=== PATIENT | male | born 1945 | race Caucasian/White ===

== ENCOUNTER 2019-08-04 21:56 | Inpatient (IN) | payer MEDICARE ==
[2019-08-04] MEDS ORDERED: Enoxaparin Sodium 100 MG/ML SYRINGE ONE (22:31)
[2019-08-04] MEDS ORDERED: Nitroglycerin 2% Ointment 1 INCH/1 GM Packet ONE ×2 (22:31→22:39)
[2019-08-04 23:24] LABS: Troponin I 0.916 ng/mL (< 0.028)
[2019-08-05] MEDS ORDERED: Ondansetron ODT 4 MG TAB SL PRN (01:34)
[2019-08-05] MEDS ORDERED: Acetaminophen 325 MG TAB PO PRN (01:34)
[2019-08-05] MEDS ORDERED: Ondansetron PF 4 MG/2 ML Vial IVP PRN (01:34)
[2019-08-05 02:48] LABS: Troponin I 7.008 ng/mL (< 0.028)
[2019-08-05] MEDS ORDERED: Dextrose 5% in Water 1,000 ML IV PRN (04:30)
[2019-08-05] MEDS ORDERED: HumaLOG 300 UNITS/3 ML VIAL SC PRN (04:30)
[2019-08-05] MEDS ORDERED: Dextrose 50% Abboject 50 ML SYRINGE SLOW IVP PRN (04:30)
--- NOTE | 2019-08-05 06:33 | HP ---
CODE STATUS: Full code. TIME OF EVALUATION: 3:00 a.m. CHIEF COMPLAINT: Chest pain. HISTORY OF PRESENT ILLNESS: A 74-year-old male patient with past medical history of diabetes, coronary artery disease, status post VA in 2009 with stent placement, prostate cancer, came to the hospital after having severe sudden onset chest pain started around 3:00 p.m. No clear triggers, no alleviating factors. The pain was substernal, sharp in nature. REVIEW OF SYSTEMS: Positive with cardiovascular, the patient has chest pain. All other systems were reviewed and negative except for the findings mentioned above. PAST SURGICAL HISTORY: Prostate cancer surgery and 2 cardiac stents. PSYCHIATRIC HISTORY: The patient denies psych history. SOCIAL HISTORY: No alcohol, no drugs, no smoking history. KNOWN ALLERGIES: Statins. REPORTED MEDICATIONS: 1. Glyburide. 2. Metformin. 3. . 4. Aspirin. 5. Krill oil. 6. One A Day. PHYSICAL EXAMINATION: VITAL SIGNS: On presentation, blood pressure 146/75 with heart rate 58, respiratory rate was 16, temperature 98.3. Pain was 0/10. Oxygen saturation was 95% on room air. GENERAL APPEARANCE: The patient is alert, oriented, in no acute distress. HEENT: Eyes, normal conjunctivae. Moist oral mucosa. Anicteric. No JVD. RESPIRATORY: Bilateral air entry. No rales. No wheezes. Symmetric expansion. CARDIOVASCULAR: Normal rate, regular rhythm. No murmurs. No gallop. No edema. ABDOMEN: Soft. Normal bowel sounds. MUSCULOSKELETAL: Baseline range of motion and strength. SKIN: Warm, intact. No pallor. No rash. No redness. Capillary refill seems to be intact. NEURO: No evidence of any new focal weakness. PSYCH: The patient has good mood. No anxiety. Optimal judgment. IMAGING: EKG was done. The patient has sinus bradycardia with marked sinus arrhythmia, complete right bundle-branch block, MA 156. LABORATORY DATA: Labs were done. Initial troponin 0.9, the second one is 7.0. All other labs that were done prior to transfer and discussed with ER doctor were normal. ASSESSMENT AND PLAN: The patient will be placed in the hospital with following medical problems. 1. Acute coronary syndrome. The patient has [id number] elevation myocardial infarction type 1 with highest troponin 7.0. The patient received Lovenox, aspirin, beta blockers, and LONNIE inhibitors. Cardiology is being consulted for recommendations. 2. History of coronary artery disease, status post stent, now with new acute event and treatment as above. 3. Uncontrolled hypertension. Systolic blood pressure in the 143 range. We will reconcile home medications, adjust treatment as needed. 4. Obesity. The patient is advised to lose weight. 5. Controlled diabetes. We will place the patient on sliding scale for optimal control. 6. Deep venous thrombosis prophylaxis. Job ID: [id number]
[2019-08-05] MEDS ORDERED: Lidocaine 1% (PF) 30 ML VIAL ONE (08:21)
[2019-08-05] MEDS ORDERED: Loperamide HCl 2 MG CAP PO PRN (08:27)
[2019-08-05] MEDS ORDERED: Loratadine 10 MG TAB PO PRN (08:27)
[2019-08-05] MEDS ORDERED: Zolpidem Tartrate 5 MG TAB PO PRN (08:27)
[2019-08-05] MEDS ORDERED: Artificial Tears 18 DROP/0.9 ML EA EYE PRN (08:27)
[2019-08-05] MEDS ORDERED: Calcium Carbonate 500 MG ChewTAB PO PRN (08:27)
[2019-08-05] MEDS ORDERED: Diabetic Tussin 200 MG/10 ML UDCUP PO PRN (08:27)
[2019-08-05] MEDS ORDERED: Sodium Chloride 0.65% Nasal 44 ML BOT EA NARE PRN (08:27)
[2019-08-05] MEDS ORDERED: hydrALAZINE 20 MG/ML VIAL SLOW IVP PRN (08:27)
[2019-08-05] MEDS ORDERED: Senokot S 8.6-50 MG TAB PO PRN (08:27)
[2019-08-05] MEDS ORDERED: HYDROcodone/Acetaminophen 5/325 mg Tablet PO PRN (08:27)
[2019-08-05] MEDS ORDERED: Bisacodyl 10 MG SUPP PR PRN (08:27)
[2019-08-05] MEDS ORDERED: Nitroglycerin 0.4 MG TAB (25 Tab Bottle) SL PRN ×2 (08:27→09:10)
[2019-08-05] MEDS ORDERED: Cepastat Lozenges 1 LOZ PO PRN (08:27)
[2019-08-05] MEDS ORDERED: Fentanyl 100 MCG/2 ML VIAL ONE (08:51)
[2019-08-05] MEDS ORDERED: Midazolam HCl 2 mg/2 ml Vial ONE (08:51)
[2019-08-05] MEDS ORDERED: Prevnar 13-Val Conj/PF 0.5 ML SYRINGE IM ONE (09:00)
[2019-08-05] MEDS ORDERED: Sodium Chloride 0.9% 200 ML IV PRN (09:10)
[2019-08-05] MEDS ORDERED: Acetaminophen/Codeine 30-300mg Tablet PO PRN ×2 (09:10)
[2019-08-05] MEDS ORDERED: Sodium Chloride 0.9% 1,000 ML IV SCH (09:15)
[2019-08-05] MEDS: Lisinopril 2.5 MG TAB PO SCH (10:03)
[2019-08-05] MEDS: Metoprolol Tartrate 25 MG TAB PO SCH ×2 (10:03→20:23)
[2019-08-05] MEDS: Enoxaparin Sodium 40 MG/0.4 ML SYRINGE SC SCH (10:03)
--- NOTE | 2019-08-05 10:33 | CON ---
DATE OF CONSULTATION: REASON FOR CONSULTATION: Non-Q-wave myocardial infarction. HISTORY OF PRESENT ILLNESS: Mr. Beckwith is a 74-year-old gentleman with a previous history of non-Q-wave MA, status post stent placement 10 years ago. He recently presented with acute onset chest pain. Chest pain lasted for up to 2 hours. He was seen, evaluated in [place]. He was given aspirin in addition to morphine. He is currently pain-free. His troponin peaked at 7.0. PAST MEDICAL HISTORY: CAD status post stent placement to the LAD ? prostate cancer. PAST SURGICAL HISTORY: Prostate surgery. SOCIAL HISTORY: No current tobacco or alcohol use. ALLERGIES: STATINS. HOME MEDICATIONS: Include aspirin, Krill oil, metformin, glyburide. REVIEW OF SYSTEMS: A 10-point review of systems is reviewed as above, otherwise negative. PHYSICAL EXAMINATION: GENERAL: Patient is a pleasant gentleman who is in no acute distress. The patient appears their stated age. VITAL SIGNS: Blood pressure 120/65, pulse 65, temperature 98.8. NEUROLOGIC: The patient is alert and oriented x3 with no focal neurologic deficits. HEENT: Sclerae without icterus. Mouth has moist mucous membranes with normal pallor. NECK: No JVD. Carotid upstroke brisk. No bruits bilaterally. LUNGS: Clear to auscultation with unlabored respirations. BACK: No scoliosis or kyphosis. CARDIAC: Regular rate and rhythm with normal S1 and S2. No S3 or S4 noted. No significant rubs, murmurs, thrills, or gallops noted throughout the precordium. PMI is not displaced. There is no parasternal heave. ABDOMEN: Soft, nontender, nondistended. No peritoneal signs present. No hepatosplenomegaly. No abnormal striae. EXTREMITIES: 2+ femoral and 2+ dorsalis pedis pulses. No cyanosis, clubbing, or edema. SKIN: No gross abnormalities. LABORATORY DATA: Troponin as above. CK and troponin within normal limits. EKG shows normal sinus rhythm with right bundle branch block. No ST-T wave changes suggesting ischemia. IMPRESSION: Non-Q-wave myocardial infarction. RECOMMENDATIONS: Mr. Beckwith has a previous history of MA and a stent placement. He had acute onset chest pain with elevated troponin. His heart score is elevated. The patient also has GUERRERO score that is also elevated. I would recommend the procedure with coronary angioplasty. I discussed procedure in full detail with Mr. Beckwith. Risks include not limited to the following: , stroke, MA, need for emergency surgery, loss of limb, bleeding, and infection, as well as a reaction to the dye causing kidney failure and needing long-term dialysis. I also discussed the risks of PCI to include all of the above including coronary dissection and perforation in addition to acute stent thrombosis and restenosis. All questions about the procedure were answered. Given the above, the patient agreed to proceed with coronary angiography and possible PCI. All questions were answered. Also discussed drug coated versus non-drug coated stent placement. There were no contraindications, we will proceed if needed. Further recommendations pending the above. Job ID: [id number]
[2019-08-05] MEDS ORDERED: Communication Order-Pharmacy FS SCH (12:32)
[2019-08-05 13:30] LABS: #Eosinphils 0.2 thou/uL (0.0-0.7); #Lymphocytes 1.8 thou/uL (1.20-3.40); #Monocytes 0.6 thou/uL (0.11-0.59); #Neutrophils 4.8 thou/uL (1.40-6.50); %Basophils 0.5 % (0.0-1.0); %Eosinophils 2.7 % (0.0-10.0); %Lymphocytes 24.5 % (21.0-51.0); %Monocytes 7.6 % (0.0-10.0); %Neutrophils 64.8 % (42.0-75.0); Hemoglobin 13.4 g/dL (14.0-18.0); Mean Corpuscular HGB CONC 34.5 g/dL (32.0-36.0); Mean Corpuscular Hemoglobin 32.6 pg (27.0-31.0); Mean Corpuscular Volume 94.5 fL (78.0-98.0); Mean Platelet Volume 7.6 fL (7.4-10.4); Platelet Count 183 thou/uL (130-400); RBC Distribution Width 12.9 % (11.5-14.5); White Blood Cell (WBC) Count 7.4 thou/uL (4.8-10.8)
--- NOTE | 2019-08-05 13:33 | RAD ---
SINGLE VIEW CHEST: Date: 08/05/19 COMPARISON: 08/04/19. HISTORY: Preoperative radiograph prior to open heart surgery. FINDINGS: Single view of the chest shows cardiomediastinal silhouette which is upper limits of normal in size. There is no evidence of consolidation, mass, or pleural effusion. IMPRESSION: No evidence of acute cardiopulmonary disease. POS: TPC
[2019-08-05 13:44] LABS: Hemoglobin A1c 5.8 % (4.0-6.0)
--- NOTE | 2019-08-05 13:51 | PDOC.HOSPP ---
- Subjective Encounter Date: 08/05/19 Encounter Time: 09:00 Subjective: Patient seen and examined. No new complaints. No overnight events pt had cardiac cath this morning and found 3 vessel cad - Objective Vital Signs & Weight: Vital Signs (12 hours) Temp Pulse Resp BP BP BP Pulse Ox 08/05/19 11:34 98.5 F 65 16 117/56 L 95 08/05/19 10:02 97 08/05/19 09:10 97.9 F 59 L 16 115/62 115/62 94 L 08/05/19 07:37 98.8 F 65 15 120/65 97 08/05/19 03:52 97.4 F L 57 L 18 101/71 92 L Weight Weight 212 lb 8 oz Result Diagrams: 08/05/19 13:18 Additional Labs: Accuchecks 08/05/19 08/05/19 11:39 05:21 POC Glucose 138 H 121 H Radiology Reviewed by me: Yes EKG Reviewed by me: Yes Hospitalist ROS - Review of Systems Eyes: denies: pain, vision change, conjunctivae inflammation, eyelid inflammation, redness, other ENT: denies: ear pain, ear discharge, nose pain, nose discharge, nose congestion , mouth pain, mouth swelling, throat pain, throat swelling, other Respiratory: denies: cough, dry, shortness of breath, hemoptysis, SOB with excertion, pleuritic pain, sputum, wheezing, other Cardiovascular: denies: chest pain, palpitations, orthopnea, paroxysmal noc. dyspnea, edema, light headedness, other Gastrointestinal: denies: nausea, vomiting, abdominal pain, diarrhea, constipation, melena, hematochezia, other Genitourinary: denies: dysuria, frequency, incontinence, hematuria, retention, other Musculoskeletal: denies: neck pain, shoulder pain, arm pain, back pain, hand pain, leg pain, foot pain, other Skin: denies: rash, lesions, betito, bruising, other - Medication Medications: Active Medications Generic Name Dose Route Start Last Admin Trade Name Freq PRN Reason Stop Dose Admin Enoxaparin Sodium 40 mg 08/05/19 09:00 08/05/19 10:03 Lovenox SC Not Given 0900 KATE Sodium Chloride 1,000 mls @ 125 mls/hr 08/05/19 09:15 08/05/19 10:07 Normal Saline 0.9% IV 08/05/19 15:16 Not Given .Q8H KATE Lisinopril 2.5 mg 08/05/19 09:00 08/05/19 10:03 Zestril PO 2.5 mg DAILY KATE Administration Metoprolol Tartrate 12.5 mg 08/05/19 09:00 08/05/19 10:03 Lopressor PO 12.5 mg BID KATE Administration Sodium Chloride 10 ml 08/05/19 09:00 08/05/19 10:02 Flush - Normal Saline IVF Not Given Q12HR KATE - Exam General Appearance: NAD, awake alert Eye: PERRL, anicteric sclera ENT: normocephalic atraumatic, no oropharyngeal lesions Neck: supple, symmetric, no JVD, no thyromegaly Heart: RRR, no murmur, no gallops, no rubs Respiratory: CTAB, no wheezes, no rales, no ronchi Gastrointestinal: soft, non-tender, non-distended, normal bowel sounds Extremities: no cyanosis, no clubbing, no edema Skin: normal turgor, no lesions, no rashes Neurological: cranial nerve grossly intact, normal sensation to touch, no focal deficits Musculoskeletal: normal tone, normal strength, no muscle wasting Psychiatric: normal affect, normal behavior, A&O x 3 Hosp A/P (1) NSTEMI (non-ST elevated myocardial infarction) Code(s): I21.4 - NON-ST ELEVATION (NSTEMI) MYOCARDIAL INFARCTION Status: Acute (2) 3-vessel coronary artery disease Status: Acute (3) Diabetes type 2, controlled Code(s): E11.9 - TYPE 2 DIABETES MELLITUS WITHOUT COMPLICATIONS Status: Chronic - Plan old records reviewed/req, plan discussed w/ family 08/05/19- s/p cardiac cath today, found with 3 vessel cad, now CV surgery consulted, will get echo today, he will need CABG, he is not on statin due to his allergy, currently on medical management, will repeat labs tomorrow, medication reviewed as above, symptomatic treatment
[2019-08-05 13:52] LABS: Anion Gap 10 mmol/L (10-20); BUN (Urea Nitrogen) 22 mg/dL (8.4-25.7); Calc. Creatinine Clearance 98 mL/min (70-130); Calcium 8.4 mg/dL (7.8-10.44); Carbon Dioxide 27 mmol/L (23-31); Chloride 102 mmol/L (98-107); Estimated GFR-MDRD 83; Glucose 132 mg/dL (83-110); Sodium 135 mmol/L (136-145)
--- NOTE | 2019-08-05 13:59 | CON ---
DATE OF CONSULTATION: 08/05/2019 REQUESTING PHYSICIAN: Dr. Palomino. PRIMARY CARE PHYSICIAN: Levi Slater MD CHIEF COMPLAINT: Chest pain. HISTORY OF PRESENT ILLNESS: The patient is a 74-year-old man with a known history of coronary artery disease, having had right coronary stenting following myocardial infarction about nine years ago. He has done well until yesterday while working, he began developing chest tightness that went into both axilla and shoulders. He developed some epigastric discomfort, reminiscent of heartburn, but he also began developing some fullness in his jaws and an intense sensation of pressure like someone standing on his chest. He did not have any nausea, shortness of breath, or diaphoresis. The chest tightness was reminiscent of his heart attack in 2009, that one had been associated with rather dramatic diaphoresis, but did not have the indigestion type quality that this presentation did in the emergency room in [place]. He had a right bundle branch block, but no ischemic changes on his EKG. His troponin, however, was elevated and he was transferred here where it continued to rise. By the time he arrived here, his pain had resolved, having received only morphine and Zofran there in the emergency room. Here, an inch of nitroglycerin paste was applied to his chest and he was given 1 mg/kg of Lovenox. Cardiac catheterization today shows multi-vessel disease with preserved left ventricular systolic function. 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 He has some minimal distant smoking history, having smoked for about 5 years during his 30s. He does not drink. FAMILY HISTORY: Significant for a younger brother having had open heart surgery in his late 40s to early 50s. REVIEW OF SYSTEMS: Negative for any eye, speech, facial, or extremity symptoms consistent with TIAs. Negative for any claudication. Negative for any shortness of breath, orthopnea, or PND. Negative for any dependent edema. Negative for any recent illnesses. PHYSICAL EXAMINATION: GENERAL: He is a fairly robust-appearing man in no distress. VITAL SIGNS: 5 feet 11-1/2 inches, weighs 212-1/2 pounds. His heart rate is 58, blood pressure 146/75, room air O2 saturations are 94%, and temperature is 97.9. HEENT: He has no xanthelasma. No JVD. No carotid bruits. CHEST: Clear to auscultation. He has a regular rate and rhythm without murmur. ABDOMEN: Soft and nontender. He has palpable radial, femoral, dorsalis pedis, and posterior tibial pulses bilaterally. He has no femoral bruits. He has no clubbing, cyanosis, or edema. NEUROLOGIC: Grossly nonfocal. He has no obvious varicosities. He is missing his left index finger and he has some scarring and contractures of the middle and 4th fingers. He has a tissue flap coverage at the stump of the index finger and a well-healed surgical scar in the left lower quadrant of the abdomen that was the source of the flap. LABORATORY EXAM: In [place], his white count was 7.59, hemoglobin 13.9, hematocrit 40.7, platelets 235,000. Sodium 139, potassium 4.0, chloride 104, CO2 of 24, glucose 139, BUN 22, creatinine 0.9, calcium 9.23, protein 7.0, albumin 4.1, bilirubin 1.0, alkaline phosphatase 53, AST 21, ALT 21. PT 13.4 seconds, INR 1.0, PTT 28.8 seconds. His troponin was 0.419 at about 5:30 in the evening. Here about 10:45, his troponin was 0.916 and then about 2 o'clock this morning, it was 7.008. The EKG shows right bundle branch block. I was not able to find a chest x-ray. His cardiac catheterization shows a right-dominant system with stented right coronary proper. He has subtotal lesion very proximally as well as at the crux and at the origin of what appears to represent a small posterolateral branch. He has a relatively small PDA. It is possible that this actually represents a long acute marginal. He also has serial in-stent stenosis on the order of 60% to 70%. His left main and very proximal circumflex appeared to be normal. He has about a 60% to 70% proximal LAD lesion just before the first septal charge entry and just after that is reasonably good size diagonal. There is a long mid LAD lesion that tapers proximally, it is on the order of 60% to 70% and distally 80% to 90%. He has a 70% or 80% lesion in the very short portion of a bifurcated OM1, the more anterior branch is tiny and the more posterior branch of that OM1 is similar in size to the catheter. After left atrial branch, there is a good-sized OM that bifurcates very distally. There is a 90% or 95% very proximal lesion in it and the circumflex continues on from there. I do not see anything more than some minimal luminal irregularity in it. LVEF is around 60%. LV pressure was 117/5 with an EDP of 35. Aortic pressure on pullback 120/54 with a mean of 81. IMPRESSION AND RECOMMENDATIONS: Diabetic with three-vessel coronary artery disease including proximal LAD lesion. He has good LV systolic function, but has significantly elevated LVEDP. He has been restarted on his home medications of Actos 30 mg a day, glimepiride 4 mg a day, metformin 500 at bedtime, and an adult aspirin a day. He also normally takes fish oil 1200 mg b.i.d. and a multivitamin a day, stating that he has allergy to statins, which cause a pruritic rash. Evidently, he has only tried one statin, but does not recall the name. He in one list describes allergy to Plavix, but in discussions with the family, he had been started on Plavix at the same time he had been started on the statin and he had just assumed that the Plavix also caused a pruritic rash. He has since been started on low-dose Zestril 2.5 mg a day and low-dose Lopressor 12.5 mg b.i.d. without any recurrence of angina. I will defer to Cardiology about lipid management, seems to be a reasonable candidate for coronary artery bypass grafting and we will schedule for tomorrow. Job ID: [id number]
[2019-08-05] MEDS ORDERED: Iopamidol 370 76% 100 ML VIAL ONE (17:39)
[2019-08-05] MEDS: Docusate 100 MG CAP PO SCH (20:25)
[2019-08-05] MEDS ORDERED: Aspirin 325 MG TAB PO SCH (21:00)
--- NOTE | 2019-08-06 06:27 | PDOC.CPN ---
- Subjective Interval history: No complaints - Objective Allergies/Adverse Reactions: Allergies Allergy/AdvReac Type Severity Reaction Status Date / Time [id number] Reductase Allergy Verified 05/29/17 20:22 Inhibitor Visit Medications: Current Medications Acetaminophen/Codeine Phosphate (Tylenol #3) 1 tab PO Q4H PRN PRN Reason: Mild Pain (1-3) Acetaminophen/Codeine Phosphate (Tylenol #3) 2 tab PO Q4H PRN PRN Reason: Moderate Pain (4-6) Hydrocodone Bitart/Acetaminophen ([place] 5/325) 1 tab PO Q4H PRN PRN Reason: Moderate Pain (4-6) Artificial Tears (Tears Naturale) 2 drop EA EYE PRN PRN PRN Reason: Dry Eyes Aspirin (Aspirin) 325 mg PO HS [facility] Last Admin: 08/05/19 20:24 Dose: 325 mg Bisacodyl (Dulcolax) 10 mg ND DAILYPRN PRN PRN Reason: Constipation Calcium Carbonate (Tums) 1,000 mg PO Q4H PRN PRN Reason: Heartburn or Indigestion Cefazolin Sodium (Cabg-Ancef) 2 gm SLOW IVP ASDIR [facility] Dextrose/Water (Dextrose 50%) 25 gm SLOW IVP PRN PRN PRN Reason: Hypoglycemia Docusate Sodium (Colace) 100 mg PO BID [facility] Last Admin: 08/05/19 20:25 Dose: 100 mg Enoxaparin Sodium (Lovenox) 40 mg SC 0900 [facility] Last Admin: 08/05/19 10:03 Dose: Not Given Glucagon (Glucagon) 1 mg IM PRN PRN PRN Reason: Hypoglycemia Guaifenesin (Robitussin Sf) 200 mg PO Q4H PRN PRN Reason: Cough Hydralazine HCl (Apresoline) 10 mg SLOW IVP Q4H PRN PRN Reason: SBP > 180 and HR < 70 Dextrose/Water (D5w) 1,000 mls @ 0 mls/hr IV .Q0M PRN PRN Reason: Hypoglycemia Insulin Human Lispro (Humalog) 0 units SC .MILD SLIDING SCALE PRN PRN Reason: Mild Correctional Scale Lisinopril (Zestril) 2.5 mg PO DAILY [facility] Last Admin: 08/05/19 10:03 Dose: 2.5 mg Loperamide HCl (Imodium) 2 mg PO PRN PRN PRN Reason: Diarrhea/Loose Stools Loratadine (Claritin) 10 mg PO DAILYPRN PRN PRN Reason: Sinus Symptoms Metoprolol Tartrate (Lopressor) 12.5 mg PO BID [facility] Last Admin: 08/05/19 20:23 Dose: 12.5 mg Miscellaneous Information (Communication Order-Pharmacy) 1 each FS ASDIR KATE Nitroglycerin (Nitrostat) 0.4 mg SL Q5MIN PRN PRN Reason: Chest Pain Senna/Docusate Sodium (Senokot S) 2 tab PO BID PRN PRN Reason: Constipation Sodium Chloride (Flush - Normal Saline) 10 ml IVF Q12HR [facility] Last Admin: 08/05/19 20:25 Dose: 10 ml Sodium Chloride (Flush - Normal Saline) 10 ml IVF PRN PRN PRN Reason: Saline Flush Sodium Chloride ([place] Nasal [place] 0.65%) 0 ml EA NARE QIDPRN PRN PRN Reason: Nasal Congestion Throat Lozenges (Cepastat Lozenges) 1 arturo PO Q2H PRN PRN Reason: Sore Throat Zolpidem Tartrate (Ambien) 5 mg PO HSPRN PRN PRN Reason: Insomnia Vital Signs & Weight: Vital Signs Temp Pulse Resp BP Pulse Ox 08/06/19 03:57 99.2 F 67 18 133/66 94 L 08/05/19 19:15 98.3 F 64 16 116/57 L 94 L Weight 212 lb 8 oz - Physical Exam General: alert & oriented x3 HEENT: normocephaly Neck: supple neck Cardiac: regular rate and rhythm, no murmur Lungs: clear to auscultation Neuro: grossly intact Musculoskeletal: no pain - Labs Result Diagrams: 08/05/19 13:18 08/05/19 13:18 Troponin/CKMB Troponin I 7.008 ng/mL (< 0.028) H* 08/05/19 01:53
[2019-08-06] MEDS ORDERED: Vecuronium 10 MG VIAL ONE ×2 (06:32→13:59)
[2019-08-06] MEDS ORDERED: Fentanyl 100 MCG/2 ML VIAL ONE (06:32)
[2019-08-06] MEDS ORDERED: Midazolam HCl 2 mg/2 ml Vial ONE (06:32)
[2019-08-06] MEDS ORDERED: Dexmedetomidine 200 MCG/2 ML VIAL ONE (06:32)
[2019-08-06] MEDS ORDERED: Midazolam HCl 5 mg/5 ml Vial ONE (06:32)
[2019-08-06] MEDS ORDERED: Albumin 5% 500 ML ONE (06:33)
[2019-08-06] MEDS ORDERED: Heparin 10,000 UNITS/1 ML VIAL 30,000 UNITS in Sodium Chloride 0.9% 1,000 ML IVPB SCH (06:45)
[2019-08-06] MEDS ORDERED: Insulin Regular 300 UNITS/3 ML VIAL ONE (09:43)
--- NOTE | 2019-08-06 10:59 | PDOC.HOSPP ---
- Subjective Encounter Date: 08/06/19 Encounter Time: 06:00 Subjective: Patient seen and examined. No new complaints. No overnight events - Objective Vital Signs & Weight: Vital Signs (12 hours) Temp Pulse Resp BP Pulse Ox 08/06/19 03:57 99.2 F 67 18 133/66 94 L Weight Weight 212 lb 8 oz I&O: 08/05/19 08/06/19 08/07/19 06:59 06:59 06:59 Intake Total 2625 Output Total 800 Balance 1825 Result Diagrams: 08/05/19 13:18 08/05/19 13:18 Additional Labs: Accuchecks 08/06/19 08/06/19 08/06/19 10:46 09:44 08:10 POC Glucose 134 H 151 H 135 H 08/06/19 08/05/19 08/05/19 05:14 20:19 17:45 POC Glucose 113 H 197 H 146 H 08/05/19 11:39 POC Glucose 138 H EKG Reviewed by me: Yes Hospitalist ROS - Review of Systems ENT: denies: ear pain, ear discharge, nose pain, nose discharge, nose congestion , mouth pain, mouth swelling, throat pain, throat swelling, other Respiratory: denies: cough, dry, shortness of breath, hemoptysis, SOB with excertion, pleuritic pain, sputum, wheezing, other Cardiovascular: denies: chest pain, palpitations, orthopnea, paroxysmal noc. dyspnea, edema, light headedness, other Gastrointestinal: denies: nausea, vomiting, abdominal pain, diarrhea, constipation, melena, hematochezia, other Genitourinary: denies: dysuria, frequency, incontinence, hematuria, retention, other Musculoskeletal: denies: neck pain, shoulder pain, arm pain, back pain, hand pain, leg pain, foot pain, other Skin: denies: rash, lesions, betito, bruising, other - Medication Medications: Active Medications Generic Name Dose Route Start Last Admin Trade Name Freq PRN Reason Stop Dose Admin Aspirin 325 mg 08/05/19 21:00 08/05/19 20:24 Aspirin PO 325 mg HS KATE Administration Docusate Sodium 100 mg 08/05/19 21:00 08/05/19 20:25 Colace PO 100 mg BID KATE Administration Enoxaparin Sodium 40 mg 08/05/19 09:00 08/05/19 10:03 Lovenox SC Not Given 09 KATE Lisinopril 2.5 mg 08/05/19 09:00 08/05/19 10:03 Zestril PO 2.5 mg DAILY KATE Administration Metoprolol Tartrate 12.5 mg 08/05/19 09:00 08/05/19 20:23 Lopressor PO 12.5 mg BID KATE Administration Sodium Chloride 10 ml 08/05/19 09:00 08/05/19 20:25 Flush - Normal Saline IVF 10 ml Q12HR KATE Administration - Exam General Appearance: NAD, awake alert Eye: PERRL, anicteric sclera ENT: normocephalic atraumatic, no oropharyngeal lesions Neck: supple, symmetric, no JVD Heart: RRR, no murmur, no gallops, no rubs Respiratory: CTAB, no wheezes, no rales, no ronchi Gastrointestinal: soft, non-tender, non-distended, normal bowel sounds Extremities: no cyanosis, no clubbing, no edema Skin: normal turgor, no lesions Neurological: cranial nerve grossly intact, normal sensation to touch Musculoskeletal: normal tone, normal strength Psychiatric: normal affect, normal behavior Hosp A/P (1) NSTEMI (non-ST elevated myocardial infarction) Code(s): I21.4 - NON-ST ELEVATION (NSTEMI) MYOCARDIAL INFARCTION Status: Acute (2) 3-vessel coronary artery disease Status: Acute (3) Diabetes type 2, controlled Code(s): E11.9 - TYPE 2 DIABETES MELLITUS WITHOUT COMPLICATIONS Status: Chronic - Plan old records reviewed/req 08/05/19- s/p cardiac cath today, found with 3 vessel cad, now CV surgery consulted, will get echo today, he will need CABG, he is not on statin due to his allergy, currently on medical management, will repeat labs tomorrow, medication reviewed as above, symptomatic treatment 08/06/19- today plan for CABG, after CABG continue post CABG protocol treatment as per CV surgery.
[2019-08-06] MEDS ORDERED: Potassium Chloride 20 MEQ/100 ML PREMIX BAG IVPB PRN (13:16)
[2019-08-06] MEDS ORDERED: Norepinephrine 8 MG/0.9% NS 250 ML IVPB PRN (13:16)
[2019-08-06] MEDS ORDERED: Bisacodyl 10 MG SUPP PR PRN (13:16)
[2019-08-06] MEDS ORDERED: Bisacodyl 5 MG TAB PO PRN (13:16)
[2019-08-06] MEDS ORDERED: Ondansetron PF 4 MG/2 ML Vial IVP PRN (13:16)
[2019-08-06] MEDS ORDERED: niCARdipine 25 MG in Sodium Chloride 0.9% 250 ML 240 ML IVPB PRN (13:16)
[2019-08-06] MEDS ORDERED: Guaifenesin DM 100-10/5 ML UDCUP PO PRN (13:16)
[2019-08-06] MEDS ORDERED: Mag-Al 1200 mg/1200 mg/30 ML UDCUP PO PRN (13:16)
[2019-08-06] MEDS ORDERED: Post-Op Insulin Drip Protocol IVPB ONE (13:16)
[2019-08-06] MEDS ORDERED: Acetaminophen 325 MG TAB PO PRN (13:16)
[2019-08-06] MEDS ORDERED: Hetastarch 6% 500 ML 500 ML IVPB PRN (13:16)
[2019-08-06] MEDS ORDERED: Promethazine HCl 25 MG/ML VIAL IM PRN (13:16)
[2019-08-06] MEDS ORDERED: Nitroglycerin 50 MG/250 ML BOT 250 ML IVPB PRN (13:16)
[2019-08-06] MEDS ORDERED: Morphine 2 MG/ML SYRINGE SLOW IVP PRN (13:16)
[2019-08-06] MEDS ORDERED: hydrALAZINE 20 MG/ML VIAL SLOW IVP PRN (13:16)
[2019-08-06] MEDS ORDERED: Fentanyl 100 MCG/2 ML VIAL SLOW IVP PRN (13:16)
[2019-08-06] MEDS ORDERED: Dextrose 50% Abboject 50 ML SYRINGE SLOW IVP PRN (13:25)
[2019-08-06] MEDS ORDERED: HUMULIN R 100 UNITS in Sodium Chloride 0.9% 100 ML IVPB SCH (13:25)
[2019-08-06] MEDS ORDERED: Insulin Regular 300 UNITS/3 ML VIAL SC PRN (13:25)
[2019-08-06] MEDS ORDERED: Dextrose 5% in Water 1,000 ML IV PRN (13:25)
[2019-08-06] MEDS ORDERED: Famotidine/PF 20 mg/2ml Vial SLOW IVP SCH (13:30)
[2019-08-06] MEDS ORDERED: Aspirin 325 MG TAB PO SCH (13:30)
[2019-08-06] MEDS ORDERED: Ketorolac Tromethamine 30 MG/ML VIAL IVP SCH (13:45)
[2019-08-06] MEDS ORDERED: Dexamethasone 20 MG/5 ML VIAL ONE (13:59)
[2019-08-06] MEDS ORDERED: Potassium Chloride 60 MEQ/30 ML VIAL ONE (13:59)
[2019-08-06] MEDS ORDERED: Mannitol 12.5 GM/50 ML ONE (13:59)
[2019-08-06] MEDS ORDERED: Heparin 5,000 UNITS/ML VIAL ONE (13:59)
[2019-08-06] MEDS ORDERED: Cardioplegic Soln 1,000 ML BAG ONE (13:59)
[2019-08-06] MEDS ORDERED: Ketorolac Tromethamine 30 MG/ML VIAL ONE (13:59)
[2019-08-06] MEDS ORDERED: Papaverine 60 MG/2 ML VIAL ONE (13:59)
[2019-08-06] MEDS ORDERED: Heparin 30,000 units/30 ml VIAL ONE (13:59)
[2019-08-06] MEDS ORDERED: PHENYLEPHRINE-NS 100 MCG/ML 10 ML SYRINGE ONE (13:59)
[2019-08-06] MEDS ORDERED: ePHEDrine 50 MG/ML VIAL ONE (13:59)
[2019-08-06] MEDS ORDERED: Nitroglycerin 50 MG/250 ML BOT ONE (13:59)
[2019-08-06] MEDS ORDERED: Calcium Chloride 1 GM/10 ML Abboject SYRINGE ONE (13:59)
[2019-08-06] MEDS ORDERED: Lidocaine 2% PF 100 mg/5 ml Syringe ONE (13:59)
[2019-08-06] MEDS ORDERED: Ondansetron PF 4 MG/2 ML Vial ONE (13:59)
[2019-08-06] MEDS ORDERED: Aminocaproic Acid 5 GM/20 ML VIAL ONE (13:59)
[2019-08-06] MEDS ORDERED: Sodium Bicarb 50 MEQ/50 ML VIAL ONE (13:59)
[2019-08-06] MEDS ORDERED: Protamine Sulfate 250 MG/25 ML VIAL ONE (13:59)
[2019-08-06] MEDS ORDERED: Glycopyrrolate 0.2 MG/ML 5 ML SYRINGE ONE (13:59)
[2019-08-06] MEDS ORDERED: Thrombin 5000 UNITS/5 ML VIAL ONE (13:59)
[2019-08-06] MEDS ORDERED: Magnesium 5 GM/10 ML VIAL ONE (13:59)
[2019-08-06] MEDS: Sodium Chloride 0.9% 1,000 ML IV SCH (14:25)
[2019-08-06 14:38] LABS: #Lymphocytes 0.9 thou/uL (1.20-3.40); #Neutrophils 12.5 thou/uL (1.40-6.50); %Basophils 0.2 % (0.0-1.0); %Eosinophils 0.3 % (0.0-10.0); %Lymphocytes 6.1 % (21.0-51.0); %Monocytes 6.8 % (0.0-10.0); %Neutrophils 86.5 % (42.0-75.0); Hemoglobin 12.9 g/dL (14.0-18.0); Mean Corpuscular HGB CONC 34.7 g/dL (32.0-36.0); Mean Corpuscular Volume 94.9 fL (78.0-98.0); Mean Platelet Volume 7.9 fL (7.4-10.4); Platelet Count 158 thou/uL (130-400); RBC Distribution Width 12.9 % (11.5-14.5); White Blood Cell (WBC) Count 14.5 thou/uL (4.8-10.8)
[2019-08-06 14:44] LABS: INR-International Normal Ratio 1.3; PTT 29.5 SEC (22.9-36.1); Prothrombin Time 16.2 SEC (12.0-14.7)
--- NOTE | 2019-08-06 14:49 | RAD ---
XR Chest 1 View Portable HISTORY: Postop open heart surgery. COMPARISON: Prior day's exam. FINDINGS: Heart size is enlarged. Postop sternotomy changes are now seen. Left subclavian line is not ed. Left-sided chest tube in place. Atelectatic changes are seen within the left lower lobe. IMPRESSION: Postop sternotomy changes with left lower lobe atelectasis.
[2019-08-06] MEDS: Docusate 100 MG CAP PO SCH ×2 (14:54→20:51)
[2019-08-06 14:57] LABS: Anion Gap 10 mmol/L (10-20); BUN (Urea Nitrogen) 19 mg/dL (8.4-25.7); Calc. Creatinine Clearance 110 mL/min (70-130); Calcium 7.9 mg/dL (7.8-10.44); Carbon Dioxide 22 mmol/L (23-31); Chloride 111 mmol/L (98-107); Estimated GFR-MDRD Greater than 90; Glucose 121 mg/dL (83-110); Potassium 4.2 mmol/L (3.5-5.1); Sodium 139 mmol/L (136-145)
[2019-08-06] MEDS: Fentanyl 100 MCG/2 ML VIAL SLOW IVP PRN ×2 (16:11→20:50)
[2019-08-06] MEDS: Ketorolac Tromethamine 30 MG/ML VIAL IVP SCH (17:25)
[2019-08-06] MEDS: Lisinopril 2.5 MG TAB PO SCH (20:06)
[2019-08-06] MEDS: Enoxaparin Sodium 40 MG/0.4 ML SYRINGE SC SCH (20:06)
[2019-08-06] MEDS: Metoprolol Tartrate 25 MG TAB PO SCH (20:07)
[2019-08-06] MEDS: Famotidine/PF 20 mg/2ml Vial SLOW IVP SCH (20:51)
--- NOTE | 2019-08-06 20:58 | OP ---
DATE OF PROCEDURE: 08/06/2019 PROCEDURES PERFORMED: Coronary artery bypass grafting x5 with left internal mammary artery to the LAD, reverse greater saphenous vein grafts from the aorta to the diagonal and to the PDA and sequential reverse greater saphenous vein graft from the aorta to the second obtuse marginal and to the third obtuse marginal. PREOPERATIVE DIAGNOSIS: Coronary artery disease, status post non-ST elevation myocardial infarction. POSTOPERATIVE DIAGNOSIS: Coronary artery disease, status post non-ST elevation myocardial infarction. HUSBANDRY TECHNICIAN: Levi Ireland MD ANESTHESIA: General endotracheal anesthesia. INDICATIONS: The patient is a 74-year-old diabetic man, who underwent right coronary stenting several years ago when he had a myocardial infarction. He recently developed exertional chest pain that lasted for about 2 hours and became increasingly severe. He had no EKG changes suggestive of ischemia, but a mildly elevated troponin upon presentation. Cardiac catheterization demonstrated preserved left ventricular systolic function, but severe 3-vessel coronary artery disease and he is now taken to the operating room for revascularization. FINDINGS: Pump time 109 minutes. Cross-clamp time 58 minutes. Good quality YISSEL. The saphenous vein was slightly small and very superficial, but was of good quality. The LAD was about a 2 mm vessel distally, were grafted. The diagonal was about a 2 mm vessel. The OM2 was about 2 to 2.5 mm and the OM3 about 2 mm. The PDA was about a 1.5 mm vessel. The pericardium was closed. NARRATIVE REPORT: After informed consent was obtained, the patient was taken to the operating room, placed in supine position on the operating table. After the induction of general anesthesia, the patient's greater saphenous vein was ultrasonographically mapped and marked in both lower extremities. The patient's left upper chest was prepped and draped in sterile fashion and he was placed in Trendelenburg. A triple-lumen central line kit was used to place a left subclavian central line by the Seldinger technique. All 3 ports easily aspirated and flushed. The line was secured to the skin with suture. The patient's torso, groins, and lower extremities were then prepped and draped in sterile fashion. Because of how superficial the vein was, no attempt at endoscopic harvest was made and incision was made sharply on the medial aspect of the upper left thigh exposing the greater saphenous vein. It was then harvested from groin to mid calf using a skin bridge technique. It was prepared for use as a graft and the harvest sites were closed in layers of subcutaneous and subcuticular Vicryl. A median sternotomy was performed and the left internal mammary artery was harvested as a skeletonized in-situ graft from the level of the xiphoid to the level of the subclavian vein through an extrapleural exposure. The patient was heparinized. The mammary was ligated and divided distally. There was good flow through the mammary, which dilated up nicely when instilled intraluminally with papaverine solution. The mammary bed was inspected for hemostasis and the YISSEL retractor was replaced with a Arredondo retractor. The pericardium was opened and marsupialized. The aorta was palpated and was soft. A double concentric purse-string of 2-0 Ethibond was placed in the ascending aorta just beyond the pericardial reflection and a single purse-string was placed in the right atrial appendage. Aortic and venous cannulae were inserted and secured by their purse-strings. The plane between the aorta and the pulmonary artery was developed. Cardiopulmonary bypass was instituted and the patient was systemically cooled. The heart was examined and the vessel to be bypassed were identified. A longitudinal slit was made in the pericardium anterior to the left phrenic nerve, through which the mammary could be passed. An aortic cross-clamp was applied and cardioplegia was administered through an aortic root needle. When arrest had been achieved, attention was turned to the distal right coronary system. The proximal PDA was exposed and opened with [place] blade and Adams scissors, and reverse greater saphenous vein was anastomosed there end-to-side with running 6-0 Prolene suture. The anastomosis was tested by flushing cold cardioplegia down the graft. Attention was then turned to the anterolateral aspect of the heart. The circumflex branches were explored. The anterior branch of the first obtuse marginal which functionally was served as the first OM because of the very proximal bifurcation was identified immediately posterior to that. The posterior branch of that vessel, normally OM2, was exposed fairly proximally and opened. The next good-sized OM was, the last one readily visible on the epicardial surface of the heart, the circumflex and the groove could not be clearly identified even though there was an intervening tiny branch that was not readily visible on the arteriogram. This nominal third OM did not go far enough posteriorly to represent the terminal branch of the circumflex. It was opened and saphenous vein was anastomosed to it with running Prolene suture. A [id number] anastomosis was then constructed from that graft to the nominal OM2. The diagonal was then opened and grafted end-to-side with saphenous vein, and then the distal LAD was opened. Mammary was anastomosed to it with running 7-0 Prolene and tacked to the epicardium. The aortic cross-clamp was replaced with a partial occluding clamp, and aortotomy was made in the ascending aorta with a scalpel and punch incorporating the root needle site into one of those aortotomies. The PDA graft was brought along the right side of the heart and anastomosed to the most proximal aortotomy. The diagonal graft was brought along the left side of the heart and anastomosed to the middle aortotomy and sequential OM graft was anastomosed to the most distal aortotomy. The partial occluding clamp was removed and the vein grafts were de-aired. The proximal anastomoses were marked with small hemoclips. The anastomoses were inspected for hemostasis. The posterior pericardial drain was brought out through a separate incision and secured to the skin with suture. Right atrial and right ventricular temporary epicardial pacing wires were placed. The patient was then easily from cardiopulmonary bypass. The aortic and venous cannulae were removed and the purse-string secured. Protamine was administered. When hemostasis was adequate, an anterior mediastinal drain was placed. The pericardium was easily closed over with running Vicryl. The cut surfaces of the sternum were treated with platelet-rich GPS and vancomycin paste, and then the sternum was reapproximated with #7 stainless steel wires. The fascia was closed over the wires with heavy Vicryl. The soft tissues were treated with platelet-poor GPS and the subcutaneous tissue was reapproximated with running 2-0 Vicryl. The skin was closed with running 3-0 Vicryl subcuticular suture. The wounds were dressed. The patient was awakened and extubated in the operating room and taken to the intensive care unit in stable condition. Job ID: [id number]
[2019-08-06 21:20] LABS: Potassium 3.9 mmol/L (3.5-5.1)
[2019-08-06] MEDS: HYDROcodone/Acetaminophen 5/325 mg Tablet PO PRN (22:53)
[2019-08-07] MEDS: Ketorolac Tromethamine 30 MG/ML VIAL IVP SCH ×2 (01:04→06:36)
[2019-08-07] MEDS: Sodium Chloride 0.9% 1,000 ML IV SCH (03:51)
[2019-08-07 03:58] LABS: #Lymphocytes 1.1 thou/uL (1.20-3.40); #Neutrophils 9.2 thou/uL (1.40-6.50); %Basophils 0.1 % (0.0-1.0); %Lymphocytes 9.4 % (21.0-51.0); %Monocytes 9.1 % (0.0-10.0); %Neutrophils 81.4 % (42.0-75.0); Hemoglobin 11.2 g/dL (14.0-18.0); Mean Corpuscular HGB CONC 34.8 g/dL (32.0-36.0); Mean Corpuscular Hemoglobin 33.3 pg (27.0-31.0); Mean Corpuscular Volume 95.5 fL (78.0-98.0); Mean Platelet Volume 8.7 fL (7.4-10.4); Platelet Count 160 thou/uL (130-400); RBC Distribution Width 13.1 % (11.5-14.5); Red Blood Cell (RBC) Count 3.38 mill/uL (4.70-6.10); White Blood Cell (WBC) Count 11.3 thou/uL (4.8-10.8)
[2019-08-07 04:21] LABS: Anion Gap 11 mmol/L (10-20); BUN (Urea Nitrogen) 25 mg/dL (8.4-25.7); Calc. Creatinine Clearance 102 mL/min (70-130); Calcium 7.7 mg/dL (7.8-10.44); Carbon Dioxide 23 mmol/L (23-31); Chloride 111 mmol/L (98-107); Estimated GFR-MDRD 88; Glucose 136 mg/dL (83-110); Potassium 4.1 mmol/L (3.5-5.1); Sodium 141 mmol/L (136-145)
[2019-08-07 05:39] VITALS: BMI 28.0
--- NOTE | 2019-08-07 08:37 | RAD ---
CHEST 1 VIEW: Date: 08/07/19 INDICATION: History of open heart surgery. COMPARISON: Prior study dated 08/06/19 at 1425 hours. FINDINGS: The left basilar pleural parenchymal opacity persists. Cardiomegaly is similar appearing. The left up per quadrant drain and left side thoracostomy tube is unchanged. Left subclavian central venous chu ter is unchanged. Right lung is clear. No pneumothorax is evident. IMPRESSION: Stable exam. POS: BH
[2019-08-07] MEDS: Docusate 100 MG CAP PO SCH ×2 (08:46→20:45)
[2019-08-07] MEDS: Famotidine/PF 20 mg/2ml Vial SLOW IVP SCH (08:46)
[2019-08-07] MEDS ORDERED: Aspirin 325 MG TAB PO SCH (09:00)
--- NOTE | 2019-08-07 10:01 | PDOC.HOSPP ---
- Subjective Encounter Date: 08/07/19 Encounter Time: 07:45 Subjective: Patient seen and examined. No new complaints. No overnight events - Objective Vital Signs & Weight: Vital Signs (12 hours) Temp 08/07/19 08:00 97.7 F 08/07/19 01:00 97.5 F L Weight Weight 204 lb 2.369 oz Most Recent Monitor Data Heart Rate from ECG 85 NIBP 92/54 NIBP BP-Mean 66 Respiration from ECG 16 SpO2 100 I&O: 08/06/19 08/07/19 08/08/19 06:59 06:59 06:59 Intake Total 2625 2277.8 300 Output Total 800 2030 90 Balance 1825 247.8 210 Result Diagrams: 08/07/19 03:38 08/07/19 03:38 Additional Labs: Accuchecks 08/07/19 08/07/19 08/07/19 05:36 04:31 03:39 POC Glucose 126 H 110 128 H 08/07/19 08/07/19 08/06/19 02:18 01:17 22:52 POC Glucose 108 117 H 103 08/06/19 08/06/19 08/06/19 20:51 19:59 17:37 POC Glucose 139 H 153 H 180 H 08/06/19 08/06/19 08/06/19 14:31 14:07 12:44 POC Glucose 125 H 121 H 144 H 08/06/19 08/06/19 08/06/19 12:11 11:37 10:46 POC Glucose 133 H 131 H 134 H Radiology Reviewed by me: Yes (chest xray reviewed) EKG Reviewed by me: Yes (nsr) Hospitalist ROS - Review of Systems Eyes: denies: pain, vision change, conjunctivae inflammation, eyelid inflammation, redness, other ENT: denies: ear pain, ear discharge, nose pain, nose discharge, nose congestion , mouth pain, mouth swelling, throat pain, throat swelling, other Respiratory: denies: cough, dry, shortness of breath, hemoptysis, SOB with excertion, pleuritic pain, sputum, wheezing, other Cardiovascular: denies: chest pain, palpitations, orthopnea, paroxysmal noc. dyspnea, edema, light headedness, other Gastrointestinal: denies: nausea, vomiting, abdominal pain, diarrhea, constipation, melena, hematochezia, other Genitourinary: denies: dysuria, frequency, incontinence, hematuria, retention, other Musculoskeletal: denies: neck pain, shoulder pain, arm pain, back pain, hand pain, leg pain, foot pain, other - Medication Medications: Active Medications Generic Name Dose Route Start Last Admin Trade Name Freq PRN Reason Stop Dose Admin Hydrocodone Bitart/Acetaminophen 2 tab 08/06/19 13:16 08/06/19 22:53 [place] 5/325 PO 2 tab Q4H PRN Administration Severe Pain (7-10) Albumin Human 12.5 gm 08/06/19 13:16 08/06/19 20:52 Albumin 5% IVPB 08/07/19 13:17 12.5 gm Q6H PRN Administration To Maintain SBP> 90 mmHG Albumin Human 25 gm 08/06/19 13:16 08/07/19 07:03 Albumin 5% IVPB 08/07/19 13:17 25 gm Q6H PRN Administration To Maintain SBP > 90 mmHG Aspirin 325 mg 08/07/19 09:00 08/07/19 08:46 Aspirin PO 325 mg DAILY KATE Administration Docusate Sodium 100 mg 08/05/19 21:00 08/07/19 08:46 Colace PO 100 mg BID KATE Administration Famotidine 20 mg 08/06/19 21:00 08/07/19 08:46 Pepcid SLOW IVP 20 mg Q12HR KATE Administration Fentanyl 25 mcg 08/06/19 13:16 08/06/19 20:50 Sublimaze SLOW IVP 08/08/19 07:31 25 mcg Q2H PRN Administration Moderate Pain (4-6) Sodium Chloride 1,000 mls @ 75 mls/hr 08/06/19 13:16 08/07/19 03:51 Normal Saline 0.9% IV 1,000 mls .[id number] KATE Administration Insulin Human Regular 100 101 mls @ 0 mls/hr 08/06/19 13:25 08/06/19 17:36 units/ Sodium Chloride IVPB 101 mls INF KATE Administration Protocol As Directed Insulin Human Regular 0 units 08/06/19 13:25 08/06/19 14:52 Humulin R SC 2 unit Q4H PRN Administration POST OP SLIDING SCALE Protocol Ondansetron HCl 4 mg 08/06/19 13:16 08/06/19 14:57 Zofran IVP 4 mg Q6H PRN Administration Nausea/Vomiting Potassium Chloride 20 meq 08/06/19 13:16 08/06/19 22:44 Kcl IVPB 20 meq PRN PRN Administration K level </= 4.0 Sodium Chloride 10 ml 08/05/19 09:00 08/06/19 20:52 Flush - Normal Saline IVF 10 ml Q12HR KATE Administration - Exam General Appearance: NAD, awake alert Eye: PERRL, anicteric sclera ENT: normocephalic atraumatic, no oropharyngeal lesions Neck: supple, symmetric, no JVD, no thyromegaly Heart: RRR, no murmur, no gallops, no rubs Heart - other findings: surgical site clean, chest tube in place Respiratory: CTAB, no wheezes, no rales, no ronchi Gastrointestinal: soft, non-tender, non-distended, normal bowel sounds Extremities: no cyanosis, no clubbing, no edema Skin: normal turgor, no lesions, no rashes Neurological: cranial nerve grossly intact, normal sensation to touch, no focal deficits Musculoskeletal: normal tone, normal strength, no muscle wasting Psychiatric: normal affect, normal behavior, A&O x 3 Hosp A/P (1) NSTEMI (non-ST elevated myocardial infarction) Code(s): I21.4 - NON-ST ELEVATION (NSTEMI) MYOCARDIAL INFARCTION Status: Acute (2) 3-vessel coronary artery disease Status: Acute (3) Diabetes type 2, controlled Code(s): E11.9 - TYPE 2 DIABETES MELLITUS WITHOUT COMPLICATIONS Status: Chronic - Plan old records reviewed/req 08/05/19- s/p cardiac cath today, found with 3 vessel cad, now CV surgery consulted, will get echo today, he will need CABG, he is not on statin due to his allergy, currently on medical management, will repeat labs tomorrow, medication reviewed as above, symptomatic treatment 08/06/19- today plan for CABG, after CABG continue post CABG protocol treatment as per CV surgery. 08/07/19- as per CV surgery continue to monitor in CCU tonight, overall stable and improving
[2019-08-07] MEDS ORDERED: Mag-Al 1200 mg/1200 mg/30 ML UDCUP PO PRN (13:52)
[2019-08-07] MEDS ORDERED: Dextrose 5% in Water 1,000 ML IV PRN (13:52)
[2019-08-07] MEDS ORDERED: Mineral Oil ENEMA PR PRN (13:52)
[2019-08-07] MEDS ORDERED: Bisacodyl 10 MG SUPP PR PRN (13:52)
[2019-08-07] MEDS ORDERED: Guaifenesin DM 100-10/5 ML UDCUP PO PRN (13:52)
[2019-08-07] MEDS ORDERED: Dextrose 50% Abboject 50 ML SYRINGE SLOW IVP PRN (13:52)
[2019-08-07] MEDS ORDERED: Zolpidem Tartrate 5 MG TAB PO PRN (13:52)
[2019-08-07] MEDS ORDERED: Nitroglycerin 0.4 MG TAB (25 Tab Bottle) SL PRN (13:52)
[2019-08-07] MEDS ORDERED: Artificial Tears 18 DROP/0.9 ML EA EYE PRN (13:52)
[2019-08-07] MEDS ORDERED: diphenhydrAMINE 25 MG CAP PO PRN (13:52)
[2019-08-07] MEDS: HYDROcodone/Acetaminophen 5/325 mg Tablet PO PRN (15:26)
[2019-08-07] MEDS: Insulin Regular 300 UNITS/3 ML VIAL SC PRN (16:30)
[2019-08-08] MEDS: HYDROcodone/Acetaminophen 5/325 mg Tablet PO PRN ×2 (03:51→08:21)
[2019-08-08 04:52] LABS: #Basophils 0.1 thou/uL (0.0-0.2); #Eosinphils 0.1 thou/uL (0.0-0.7); #Lymphocytes 1.4 thou/uL (1.20-3.40); #Monocytes 1.1 thou/uL (0.11-0.59); %Basophils 0.5 % (0.0-1.0); %Eosinophils 0.6 % (0.0-10.0); %Lymphocytes 11.8 % (21.0-51.0); %Monocytes 9.6 % (0.0-10.0); %Neutrophils 77.6 % (42.0-75.0); Hemoglobin 10.5 g/dL (14.0-18.0); Mean Corpuscular HGB CONC 34.4 g/dL (32.0-36.0); Mean Platelet Volume 8.4 fL (7.4-10.4); Platelet Count 144 thou/uL (130-400); RBC Distribution Width 13.2 % (11.5-14.5); Red Blood Cell (RBC) Count 3.19 mill/uL (4.70-6.10); White Blood Cell (WBC) Count 11.6 thou/uL (4.8-10.8)
[2019-08-08 05:14] LABS: Anion Gap 9 mmol/L (10-20); BUN (Urea Nitrogen) 31 mg/dL (8.4-25.7); Calc. Creatinine Clearance 85 mL/min (70-130); Calcium 7.8 mg/dL (7.8-10.44); Carbon Dioxide 24 mmol/L (23-31); Chloride 104 mmol/L (98-107); Estimated GFR-MDRD 75; Glucose 180 mg/dL (83-110); Potassium 4.1 mmol/L (3.5-5.1); Sodium 133 mmol/L (136-145)
[2019-08-08] MEDS: Aspirin 325 mg Enteric Coated Tablet PO SCH (08:09)
[2019-08-08] MEDS: Docusate 100 MG CAP PO SCH ×2 (08:09→20:20)
[2019-08-08] MEDS: Insulin Regular 300 UNITS/3 ML VIAL SC PRN ×3 (08:09→17:17)
[2019-08-08] MEDS: Bisacodyl 5 MG TAB PO PRN (08:09)
--- NOTE | 2019-08-08 10:41 | PDOC.HOSPP ---
- Subjective Encounter Date: 08/08/19 Encounter Time: 08:30 Subjective: Patient seen and examined. No new complaints. No overnight events - Objective Vital Signs & Weight: Vital Signs (12 hours) Temp Pulse Resp BP Pulse Ox 08/08/19 07:20 98.3 F 93 20 101/61 94 L 08/08/19 04:00 98.1 F 97 18 110/59 L 92 L 08/08/19 03:28 93 L 08/08/19 00:00 98.2 F 87 18 116/60 93 L Weight Weight 210 lb 1.6 oz Most Recent Monitor Data Heart Rate from ECG 92 NIBP 108/76 NIBP BP-Mean 86 Respiration from ECG 28 SpO2 97 I&O: 08/07/19 08/08/19 08/09/19 06:59 06:59 06:59 Intake Total 2277.8 1150 Output Total 2030 475 Balance 247.8 675 Result Diagrams: 08/08/19 04:28 08/08/19 04:28 Additional Labs: Accuchecks 08/08/19 08/07/19 08/07/19 05:56 20:33 16:22 POC Glucose 182 H 234 H 222 H 08/07/19 12:50 POC Glucose 255 H EKG Reviewed by me: Yes (nsr) Hospitalist ROS - Review of Systems ENT: denies: ear pain, ear discharge, nose pain, nose discharge, nose congestion , mouth pain, mouth swelling, throat pain, throat swelling, other Respiratory: denies: cough, dry, shortness of breath, hemoptysis, SOB with excertion, pleuritic pain, sputum, wheezing, other Cardiovascular: denies: chest pain, palpitations, orthopnea, paroxysmal noc. dyspnea, edema, light headedness, other Gastrointestinal: denies: nausea, vomiting, abdominal pain, diarrhea, constipation, melena, hematochezia, other Genitourinary: denies: dysuria, frequency, incontinence, hematuria, retention, other Musculoskeletal: denies: neck pain, shoulder pain, arm pain, back pain, hand pain, leg pain, foot pain, other Skin: denies: rash, lesions, betito, bruising, other - Medication Medications: Active Medications Generic Name Dose Route Start Last Admin Trade Name Freq PRN Reason Stop Dose Admin Hydrocodone Bitart/Acetaminophen 1 tab 08/06/19 13:16 08/08/19 08:21 [place] 5/325 PO 1 tab Q4H PRN Administration Moderate Pain (4-6) Hydrocodone Bitart/Acetaminophen 2 tab 08/06/19 13:16 08/07/19 15:26 [place] 5/325 PO 2 tab Q4H PRN Administration Severe Pain (7-10) Aspirin 325 mg 08/08/19 09:00 08/08/19 08:09 Ecotrin PO 325 mg DAILY KATE Administration Bisacodyl 10 mg 08/07/19 13:52 08/08/19 08:09 Dulcolax PO 10 mg Q12H PRN Administration Constipation Docusate Sodium 100 mg 08/05/19 21:00 08/08/19 08:09 Colace PO 100 mg BID KATE Administration Insulin Human Regular 0 units 08/07/19 13:52 08/08/19 08:09 Humulin R SC 2 unit .MODERATE SLIDING SC PRN Administration Moderate Correctional Scale Ondansetron HCl 4 mg 08/06/19 13:16 08/06/19 14:57 Zofran IVP 4 mg Q6H PRN Administration Nausea/Vomiting Sodium Chloride 10 ml 08/05/19 09:00 08/08/19 08:09 Flush - Normal Saline IVF 10 ml Q12HR KATE Administration - Exam General Appearance: NAD, awake alert Eye: PERRL, anicteric sclera ENT: normocephalic atraumatic, no oropharyngeal lesions Neck: supple, symmetric, no JVD, no thyromegaly Heart: RRR, no murmur, no gallops, no rubs Respiratory: CTAB, no wheezes, no rales, no ronchi Gastrointestinal: soft, non-tender, non-distended, normal bowel sounds Extremities: no cyanosis, no clubbing, no edema Skin: normal turgor, no lesions, no rashes Neurological: cranial nerve grossly intact, normal sensation to touch, no focal deficits Musculoskeletal: normal tone, normal strength Psychiatric: normal affect, normal behavior, A&O x 3 Hosp A/P (1) NSTEMI (non-ST elevated myocardial infarction) Code(s): I21.4 - NON-ST ELEVATION (NSTEMI) MYOCARDIAL INFARCTION Status: Acute (2) 3-vessel coronary artery disease Status: Acute (3) Diabetes type 2, controlled Code(s): E11.9 - TYPE 2 DIABETES MELLITUS WITHOUT COMPLICATIONS Status: Chronic (4) S/P CABG (coronary artery bypass graft) Code(s): Z95.1 - PRESENCE OF AORTOCORONARY BYPASS GRAFT Status: Acute - Plan old records reviewed/req, plan discussed w/ family 08/05/19- s/p cardiac cath today, found with 3 vessel cad, now CV surgery consulted, will get echo today, he will need CABG, he is not on statin due to his allergy, currently on medical management, will repeat labs tomorrow, medication reviewed as above, symptomatic treatment 08/06/19- today plan for CABG, after CABG continue post CABG protocol treatment as per CV surgery. 08/07/19- as per CV surgery continue to monitor in CCU tonight, overall stable and improving 08/03/19- pst CABG doing well, continue cardiac rehab, discussed with family, monitor on tele, medication reviewed as above, symptomatic treatment
--- NOTE | 2019-08-08 13:46 | PDOC.CPN ---
- Subjective Date: 08/08/19 Time: 13:44 Interval history: he is doing well. Feels a little bloated, has not had a BM but is passing gas. Working with PT. - Review of Systems General: denies: fever/chills, weight/appetite/sleep changes, night sweats, fatigue Respiratory: denies: cough, congestion, shortness of breath, exercise intolerance Cardiovascular: denies: chest pain, palpitation, edema, paroxysmal nocturnal dyspnea, orthopnea Gastrointestinal: reports: constipation. denies: nausea, vomiting, diarrhea, abd pain, GI bleeding Musculoskeletal: reports: pain. denies: tenderness, stiffness, swelling, arthritis/arthralgias Neurological: denies: numbness, syncope, seizure, weakness - Objective Allergies/Adverse Reactions: Allergies Allergy/AdvReac Type Severity Reaction Status Date / Time [id number] Reductase Allergy Verified 05/29/17 20:22 Inhibitor Visit Medications: Current Medications Hydrocodone Bitart/Acetaminophen ([place] 5/325) 1 tab PO Q4H PRN PRN Reason: Moderate Pain (4-6) Last Admin: 08/08/19 08:21 Dose: 1 tab Hydrocodone Bitart/Acetaminophen ([place] 5/325) 2 tab PO Q4H PRN PRN Reason: Severe Pain (7-10) Last Admin: 08/07/19 15:26 Dose: 2 tab Al Hydroxide/Mg Hydroxide (Maalox) 30 ml PO Q4H PRN PRN Reason: Indigestion Artificial Tears (Tears Naturale) 0 drop EA EYE PRN PRN PRN Reason: Dry Eyes Aspirin (Ecotrin) 325 mg PO DAILY COUNTS INCLUDE 234 BEDS AT THE [facility] Last Admin: 08/08/19 08:09 Dose: 325 mg Bisacodyl (Dulcolax) 10 mg PO Q12H PRN PRN Reason: Constipation Last Admin: 08/08/19 08:09 Dose: 10 mg Bisacodyl (Dulcolax) 10 mg OK Q12H PRN PRN Reason: Constipation Dextrose/Water (Dextrose 50%) 25 gm SLOW IVP PRN PRN PRN Reason: Hypoglycemia Diphenhydramine HCl (Benadryl) 25 mg PO Q6H PRN PRN Reason: Itching & Insomnia or Keshav Johnson Docusate Sodium (Colace) 100 mg PO BID COUNTS INCLUDE 234 BEDS AT THE [facility] Last Admin: 08/08/19 08:09 Dose: 100 mg Glucagon (Glucagon) 1 mg IM PRN PRN PRN Reason: Hypoglycemia Guaifenesin/Dextromethorphan (Robitussin Dm) 15 ml PO Q4H PRN PRN Reason: Cough Dextrose/Water (D5w) 1,000 mls @ 0 mls/hr IV .Q0M PRN PRN Reason: Hypoglycemia Insulin Human Regular (Humulin R) 0 units SC .MODERATE SLIDING SC PRN PRN Reason: Moderate Correctional Scale Last Admin: 08/08/19 11:10 Dose: 4 unit Mineral Oil (Fleet Mineral Oil) 133 ml [place] DAILYPRN PRN PRN Reason: Constipation Nitroglycerin (Nitrostat) 0.4 mg SL Q5MIN PRN PRN Reason: Chest Pain Ondansetron HCl (Zofran) 4 mg IVP Q6H PRN PRN Reason: Nausea/Vomiting Last Admin: 08/06/19 14:57 Dose: 4 mg Sodium Chloride (Flush - Normal Saline) 10 ml IVF Q12HR KATE Last Admin: 08/08/19 08:09 Dose: 10 ml Throat Lozenges (Cepastat Lozenges) 1 arturo PO Q2H PRN PRN Reason: Sore Throat Zolpidem Tartrate (Ambien) 5 mg PO HSPRN PRN PRN Reason: Insomnia Vital Signs & Weight: Vital Signs Temp Pulse Pulse Pulse Resp BP BP 08/08/19 11:05 97.5 F L 75 16 08/08/19 09:13 86 103 H 109/58 L 140/65 08/08/19 07:20 98.3 F 93 20 08/08/19 04:00 98.1 F 97 18 08/08/19 03:28 BP BP Pulse Ox Pulse Ox Pulse Ox 08/08/19 11:05 102/56 L 95 08/08/19 09:13 96 97 08/08/19 07:20 101/61 94 L 08/08/19 04:00 110/59 L 92 L 08/08/19 03:28 93 L Weight 210 lb 1.6 oz - Physical Exam General: alert & oriented x3, no apparent distress HEENT: mucus membranes moist, normocephaly Neck: supple neck, midline trachea Cardiac: regular rate and rhythm, systolic murmur Lungs: clear to auscultation, no wheeze, rales, rhonchi Neuro: grossly intact, coordination normal Abdomen: active bowel sounds, non-tender, distended Skin: clear Musculoskeletal: normal range of motion, no pain - Labs Result Diagrams: 08/08/19 04:28 08/08/19 04:28 Troponin/CKMB Troponin I 7.008 ng/mL (< 0.028) H* 08/05/19 01:53 - Telemetry Sinus rhythms and dysrhythmias: sinus rhythm - Assessment/Plan Assessment/Plan: 1. Multivessel CAD. 2. S/p CABG x 56 3. NSTEMI PLAN: - Increase PT as tolerated. - ASA for life, allergic to statins. - BB and ACEI once BP allows. Currently borderline low. - Laxative.
[2019-08-08] MEDS ORDERED: Amiodarone 150 MG, Admixture Fee 1 EACH in Dextrose 5% in Water 100 ML IVPB SCH (19:00)
[2019-08-08 20:57] LABS: ALT (SGPT) 19 U/L (8-55); AST (SGOT) 38 U/L (5-34); Albumin 3.4 g/dL (3.4-4.8); Alkaline Phosphatase 38 U/L (40-110); Bilirubin, Direct 0.7 mg/dL (0.1-0.3); Bilirubin, Total 1.4 mg/dL (0.2-1.2); Magnesium 2.2 mg/dL (1.6-2.6); Protein, Total 5.9 g/dL (5.8-8.1)
[2019-08-08] MEDS: Amiodarone 450 MG, Admixture Fee 1 EACH in Dextrose 5% in Water 250 ML IVPB SCH (22:12)
[2019-08-09] MEDS: Amiodarone 450 MG, Admixture Fee 1 EACH in Dextrose 5% in Water 250 ML IVPB SCH (05:51)
[2019-08-09] MEDS ORDERED: Loperamide HCl 2 MG CAP PO PRN (07:23)
[2019-08-09] MEDS ORDERED: Diabetic Tussin 200 MG/10 ML UDCUP PO PRN (07:23)
[2019-08-09] MEDS ORDERED: Labetalol HCl 100 MG/20 ML VIAL SLOW IVP PRN (07:23)
[2019-08-09] MEDS ORDERED: Senokot S 8.6-50 MG TAB PO PRN (07:23)
[2019-08-09] MEDS ORDERED: Sodium Chloride 0.65% Nasal 44 ML BOT EA NARE PRN (07:23)
[2019-08-09] MEDS: Glimepiride 4 MG TAB PO SCH (08:11)
[2019-08-09] MEDS: Multivit, Therapeutic 1 TAB PO SCH (08:11)
[2019-08-09] MEDS: Polyethylene Glycol 3350 17 GM Packet PO SCH (08:11)
[2019-08-09] MEDS: metFORMIN 500 MG TAB PO SCH ×2 (08:11→16:48)
[2019-08-09] MEDS: Fish Oil 1,000 MG CAP PO SCH ×2 (08:11→20:40)
[2019-08-09] MEDS: Bisacodyl 5 MG TAB PO PRN (08:11)
[2019-08-09] MEDS: Docusate 100 MG CAP PO SCH ×2 (08:11→20:40)
[2019-08-09] MEDS: Aspirin 325 mg Enteric Coated Tablet PO SCH (08:11)
[2019-08-09] MEDS: Pioglitazone HCl 15 MG TAB PO SCH (08:11)
[2019-08-09] MEDS: Insulin Regular 300 UNITS/3 ML VIAL SC PRN ×2 (08:12→10:59)
--- NOTE | 2019-08-09 09:55 | PDOC.HOSPP ---
- Subjective Encounter Date: 08/09/19 Encounter Time: 08:00 Subjective: pt has constipation and he feels bloated sensation, he was given enema but per pt not successful, eating food, no nausea or vomiting, no chest pain Patient seen and examined. Amiodaron drip started yesterday by cardiology - Objective Vital Signs & Weight: Vital Signs (12 hours) Temp Pulse Resp BP BP BP Pulse Ox 08/09/19 07:15 99.3 F 79 17 144/65 H 93 L 08/09/19 04:00 97.1 F L 82 16 123/65 92 L 08/09/19 03:39 93 L 08/08/19 23:52 98.4 F 92 20 127/59 L 93 L Weight Weight 210 lb 1.6 oz Most Recent Monitor Data Heart Rate from ECG 92 NIBP 108/76 NIBP BP-Mean 86 Respiration from ECG 28 SpO2 97 I&O: 08/08/19 08/09/19 08/10/19 06:59 06:59 06:59 Intake Total 1150 1500 Output Total 475 Balance 675 1500 Result Diagrams: 08/08/19 04:28 08/08/19 04:28 Additional Labs: Accuchecks 08/09/19 08/08/19 08/08/19 06:18 21:48 17:04 POC Glucose 203 H 195 H 183 H 08/08/19 10:55 POC Glucose 238 H EKG Reviewed by me: Yes (PAT noted) Hospitalist ROS - Review of Systems Eyes: denies: pain, vision change, conjunctivae inflammation, eyelid inflammation, redness, other ENT: denies: ear pain, ear discharge, nose pain, nose discharge, nose congestion , mouth pain, mouth swelling, throat pain, throat swelling, other Respiratory: denies: cough, dry, shortness of breath, hemoptysis, SOB with excertion, pleuritic pain, sputum, wheezing, other Cardiovascular: denies: chest pain, palpitations, orthopnea, paroxysmal noc. dyspnea, edema, light headedness, other Gastrointestinal: reports: constipation. denies: nausea, vomiting, abdominal pain, diarrhea, melena, hematochezia, other Genitourinary: denies: dysuria, frequency, incontinence, hematuria, retention, other Musculoskeletal: denies: neck pain, shoulder pain, arm pain, back pain, hand pain, leg pain, foot pain, other Skin: denies: rash, lesions, betito, bruising, other - Medication Medications: Active Medications Generic Name Dose Route Start Last Admin Trade Name Freq PRN Reason Stop Dose Admin Hydrocodone Bitart/Acetaminophen 1 tab 08/06/19 13:16 08/08/19 08:21 [place] 5/325 PO 1 tab Q4H PRN Administration Moderate Pain (4-6) Hydrocodone Bitart/Acetaminophen 2 tab 08/06/19 13:16 08/07/19 15:26 [place] 5/325 PO 2 tab Q4H PRN Administration Severe Pain (7-10) Aspirin 325 mg 08/08/19 09:00 08/09/19 08:11 Ecotrin PO 325 mg DAILY KATE Administration Bisacodyl 10 mg 08/07/19 13:52 08/09/19 08:11 Dulcolax PO 10 mg Q12H PRN Administration Constipation Docusate Sodium 100 mg 08/05/19 21:00 08/09/19 08:11 Colace PO 100 mg BID KATE Administration Fish Oil 1,000 mg 08/09/19 09:00 08/09/19 08:11 Fish Oil PO 1,000 mg BID KATE Administration Glimepiride 4 mg 08/09/19 07:30 08/09/19 08:11 Amaryl PO 4 mg 0730 KATE Administration Amiodarone HCl 450 mg/ 259 mls @ 0 mls/hr 08/08/19 19:15 08/09/19 05:51 Miscellaneous Medication 1 IVPB 259 mls each/ Dextrose/Water INF KTAE Administration Protocol As Directed Insulin Human Regular 0 units 08/07/19 13:52 08/09/19 08:12 Humulin R SC 4 unit .MODERATE SLIDING SC PRN Administration Moderate Correctional Scale Metformin HCl 500 mg 08/09/19 08:00 08/09/19 08:11 Glucophage PO 500 mg BID-WM KATE Administration Mineral Oil 133 ml 08/07/19 13:52 08/08/19 22:14 Fleet Mineral Oil [place] 133 ml DAILYPRN PRN Administration Constipation Multivitamins 1 tab 08/09/19 09:00 08/09/19 08:11 Theragran PO 1 tab DAILY KATE Administration Ondansetron HCl 4 mg 08/06/19 13:16 08/06/19 14:57 Zofran IVP 4 mg Q6H PRN Administration Nausea/Vomiting Pioglitazone HCl 30 mg 08/09/19 09:00 08/09/19 08:11 Actos PO 30 mg DAILY KATE Administration Polyethylene Glycol 17 gm 08/09/19 09:00 08/09/19 08:11 Miralax PO 17 gm DAILY KATE Administration Sodium Chloride 10 ml 08/05/19 09:00 08/09/19 08:11 Flush - Normal Saline IVF 10 ml Q12HR KATE Administration - Exam General Appearance: NAD, awake alert Eye: PERRL, anicteric sclera ENT: normocephalic atraumatic, no oropharyngeal lesions Neck: supple, symmetric, no JVD, no thyromegaly Heart: RRR, no murmur, no gallops, no rubs, normal peripheral pulses Heart - other findings: surgical site clean Respiratory: CTAB, no wheezes, no rales, no ronchi Gastrointestinal: soft, non-tender, non-distended, normal bowel sounds, no palpable masses, no hepatomegaly, no splenomegaly Extremities: no cyanosis, no clubbing, no edema Skin: normal turgor, no lesions Neurological: cranial nerve grossly intact, no focal deficits Musculoskeletal: normal tone, normal strength Psychiatric: normal affect, normal behavior Hosp A/P (1) NSTEMI (non-ST elevated myocardial infarction) Code(s): I21.4 - NON-ST ELEVATION (NSTEMI) MYOCARDIAL INFARCTION Status: Acute Plan: s/p cardiac cath, showed 3 vessel cad (2) 3-vessel coronary artery disease Status: Acute Plan: s/p CABG this admission (3) Diabetes type 2, controlled Code(s): E11.9 - TYPE 2 DIABETES MELLITUS WITHOUT COMPLICATIONS Status: Chronic (4) S/P CABG (coronary artery bypass graft) Code(s): Z95.1 - PRESENCE OF AORTOCORONARY BYPASS GRAFT Status: Acute (5) Constipation Code(s): K59.00 - CONSTIPATION, UNSPECIFIED Status: Acute - Plan old records reviewed/req, plan discussed w/ family 08/05/19- s/p cardiac cath today, found with 3 vessel cad, now CV surgery consulted, will get echo today, he will need CABG, he is not on statin due to his allergy, currently on medical management, will repeat labs tomorrow, medication reviewed as above, symptomatic treatment 08/06/19- today plan for CABG, after CABG continue post CABG protocol treatment as per CV surgery. 08/07/19- as per CV surgery continue to monitor in CCU tonight, overall stable and improving 08/03/19- pst CABG doing well, continue cardiac rehab, discussed with family, monitor on tele, medication reviewed as above, symptomatic treatment 08/04/19- will add miralax scheduled, try stool softener today and if no result , fleet enema again tonight, amiodaron drip as per cardiology, continue cardiac rehab, discussed with and daughter, medication reviewed as above, symptomatic treatment, will repeat labs tomorrow, add metformin 500 mg po bid,
[2019-08-09] MEDS ORDERED: Fleet Enema 133 ML BOT PR PRN (09:58)
--- NOTE | 2019-08-09 17:17 | EKG ---
Test Reason : POST CABG Blood Pressure : / mmHG Vent. Rate : 073 BPM Atrial Rate : 073 BPM P-R Int : 170 ms QRS Dur : 132 ms QT Int : 436 ms P-R-T Axes : 072 034 071 degrees QTc Int : 480 ms Sinus rhythm with Premature atrial complexes Right bundle branch block Abnormal ECG When compared with ECG of 04-AUG-2019 22:05, (Unconfirmed) Premature atrial complexes are now Present Confirmed by GENNA SHAH (2) on 08/09/2019 5:17:41 PM Referred By: BRENDA Confirmed By:GENNA SHAH
--- NOTE | 2019-08-09 19:04 | PDOC.CPN ---
- Subjective Date: 08/09/19 Time: 19:03 Interval history: Has not had a BM yet but is still passing gas. He is now feeling bloated and with abdominal pain. he walked with PT and felt this helped and only had a large amount of gas but no BM yet. No nausea or vomiting. he had afib last night and was started on amiodarone drip and eventually converted to sinus. - Review of Systems General: denies: fever/chills, weight/appetite/sleep changes, night sweats, fatigue Respiratory: denies: cough, congestion, shortness of breath, exercise intolerance Cardiovascular: denies: chest pain, palpitation, edema, paroxysmal nocturnal dyspnea, orthopnea Gastrointestinal: reports: constipation, abd pain. denies: nausea, vomiting, diarrhea, GI bleeding Musculoskeletal: denies: pain, tenderness, stiffness, swelling, arthritis/ arthralgias Neurological: denies: numbness, syncope, seizure, weakness - Objective Allergies/Adverse Reactions: Allergies Allergy/AdvReac Type Severity Reaction Status Date / Time Ckfssmp-Nfu-Xor Reductase Allergy Verified 05/29/17 20:22 Inhibitor Visit Medications: Current Medications Hydrocodone Bitart/Acetaminophen ([place] 5/325) 1 tab PO Q4H PRN PRN Reason: Moderate Pain (4-6) Last Admin: 08/08/19 08:21 Dose: 1 tab Hydrocodone Bitart/Acetaminophen ([place] 5/325) 2 tab PO Q4H PRN PRN Reason: Severe Pain (7-10) Last Admin: 08/07/19 15:26 Dose: 2 tab Al Hydroxide/Mg Hydroxide (Maalox) 30 ml PO Q4H PRN PRN Reason: Indigestion Artificial Tears (Tears Naturale) 0 drop EA EYE PRN PRN PRN Reason: Dry Eyes Aspirin (Ecotrin) 325 mg PO DAILY KATE Last Admin: 08/09/19 08:11 Dose: 325 mg Bisacodyl (Dulcolax) 10 mg PO Q12H PRN PRN Reason: Constipation Last Admin: 08/09/19 08:11 Dose: 10 mg Bisacodyl (Dulcolax) 10 mg [place] Q12H PRN PRN Reason: Constipation Dextrose/Water (Dextrose 50%) 25 gm SLOW IVP PRN PRN PRN Reason: Hypoglycemia Diphenhydramine HCl (Benadryl) 25 mg PO Q6H PRN PRN Reason: Itching & Insomnia or Keshav Johnson Docusate Sodium (Colace) 100 mg PO BID [facility] Last Admin: 08/09/19 08:11 Dose: 100 mg Fish Oil (Fish Oil) 1,000 mg PO BID [facility] Last Admin: 08/09/19 08:11 Dose: 1,000 mg Glimepiride (Amaryl) 4 mg PO 0730 [facility] Last Admin: 08/09/19 08:11 Dose: 4 mg Glucagon (Glucagon) 1 mg IM PRN PRN PRN Reason: Hypoglycemia Guaifenesin (Robitussin Sf) 200 mg PO Q4H PRN PRN Reason: Cough Guaifenesin/Dextromethorphan (Robitussin Dm) 15 ml PO Q4H PRN PRN Reason: Cough Dextrose/Water (D5w) 1,000 mls @ 0 mls/hr IV .Q0M PRN PRN Reason: Hypoglycemia Amiodarone HCl 450 mg/Miscellaneous Medication 1 each/ Dextrose/Water 259 mls @ 0 mls/hr IVPB INF [facility]; Protocol Last Admin: 08/09/19 05:51 Dose: 259 mls Insulin Human Regular (Humulin R) 0 units SC .MODERATE SLIDING SC PRN PRN Reason: Moderate Correctional Scale Last Admin: 08/09/19 10:59 Dose: 4 unit Labetalol HCl (Normodyne) 20 mg SLOW IVP Q4H PRN PRN Reason: SBP > 180 and HR >/= 70 Loperamide HCl (Imodium) 2 mg PO PRN PRN PRN Reason: Diarrhea/Loose Stools Metformin HCl (Glucophage) 500 mg PO BID-[facility] Last Admin: 08/09/19 16:48 Dose: 500 mg Mineral Oil (Fleet Mineral Oil) 133 ml [place] DAILYPRN PRN PRN Reason: Constipation Last Admin: 08/08/19 22:14 Dose: 133 ml Multivitamins (Theragran) 1 tab PO DAILY [facility] Last Admin: 08/09/19 08:11 Dose: 1 tab Nitroglycerin (Nitrostat) 0.4 mg SL Q5MIN PRN PRN Reason: Chest Pain Ondansetron HCl (Zofran) 4 mg IVP Q6H PRN PRN Reason: Nausea/Vomiting Last Admin: 08/06/19 14:57 Dose: 4 mg Pioglitazone HCl (Actos) 30 mg PO DAILY [facility] Last Admin: 08/09/19 08:11 Dose: 30 mg Polyethylene Glycol (Miralax) 17 gm PO DAILY [facility] Last Admin: 08/09/19 08:11 Dose: 17 gm Senna/Docusate Sodium (Senokot S) 2 tab PO BID PRN PRN Reason: Constipation Sodium Biphosphate/Sodium Phosphate (Fleet Enema) 133 ml [place] ONE PRN PRN Reason: Constipation Stop: 08/12/19 09:59 Sodium Chloride (Flush - Normal Saline) 10 ml IVF Q12HR [facility] Last Admin: 08/09/19 08:11 Dose: 10 ml Sodium Chloride ([place] Nas[place] 0.65%) 0 ml EA NARE QIDPRN PRN PRN Reason: Nasal Congestion Throat Lozenges (Cepastat Lozenges) 1 arturo PO Q2H PRN PRN Reason: Sore Throat Zolpidem Tartrate (Ambien) 5 mg PO HSPRN PRN PRN Reason: Insomnia Vital Signs & Weight: Vital Signs Temp Pulse Pulse Pulse Resp BP BP 08/09/19 15:13 98.8 F 70 18 08/09/19 12:04 83 76 131/68 111/75 08/09/19 11:11 97.7 F 73 16 08/09/19 07:15 99.3 F 79 17 BP BP Pulse Ox 08/09/19 15:13 117/57 L 95 08/09/19 12:04 08/09/19 11:11 110/58 L 94 L 08/09/19 07:15 144/65 H 93 L Weight 210 lb 1.6 oz - Physical Exam General: alert & oriented x3 HEENT: mucus membranes moist, normocephaly Neck: supple neck, midline trachea Cardiac: regular rate and rhythm, systolic murmur Lungs: clear to auscultation, no wheeze, rales, rhonchi Neuro: grossly intact Abdomen: active bowel sounds, distended Skin: clear Musculoskeletal: normal range of motion - Labs Result Diagrams: 08/08/19 04:28 08/08/19 04:28 Troponin/CKMB Troponin I 7.008 ng/mL (< 0.028) H* 08/05/19 01:53 - Telemetry Sinus rhythms and dysrhythmias: sinus rhythm - Assessment/Plan Assessment/Plan: 1. Multivessel CAD. 2. S/p CABG x 56 3. NSTEMI 4. Constipation. 5. Post op afib PLAN: - Increase PT as tolerated. - ASA for life, allergic to statins. - BB and ACEI once BP allows. Currently borderline low. - Laxative. - Amiodarone load. Converted after amio drip.
[2019-08-09] MEDS: Amiodarone 200 MG TAB PO SCH (20:40)
[2019-08-10] MEDS: HYDROcodone/Acetaminophen 5/325 mg Tablet PO PRN (03:02)
[2019-08-10 05:25] LABS: #Eosinphils 0.4 thou/uL (0.0-0.7); #Lymphocytes 1.3 thou/uL (1.20-3.40); #Monocytes 0.9 thou/uL (0.11-0.59); #Neutrophils 7.6 thou/uL (1.40-6.50); %Basophils 0.2 % (0.0-1.0); %Lymphocytes 13.1 % (21.0-51.0); %Monocytes 8.8 % (0.0-10.0); Hemoglobin 10.2 g/dL (14.0-18.0); Mean Corpuscular HGB CONC 34.5 g/dL (32.0-36.0); Mean Corpuscular Volume 95.7 fL (78.0-98.0); Mean Platelet Volume 8.4 fL (7.4-10.4); Platelet Count 184 thou/uL (130-400); RBC Distribution Width 12.9 % (11.5-14.5); Red Blood Cell (RBC) Count 3.07 mill/uL (4.70-6.10); White Blood Cell (WBC) Count 10.3 thou/uL (4.8-10.8)
[2019-08-10 05:34] LABS: Anion Gap 11 mmol/L (10-20); BUN (Urea Nitrogen) 20 mg/dL (8.4-25.7); Calc. Creatinine Clearance 104 mL/min (70-130); Calcium 7.8 mg/dL (7.8-10.44); Carbon Dioxide 22 mmol/L (23-31); Chloride 101 mmol/L (98-107); Estimated GFR-MDRD 90; Glucose 160 mg/dL (83-110); Potassium 3.9 mmol/L (3.5-5.1); Sodium 130 mmol/L (136-145)
--- NOTE | 2019-08-10 07:12 | PDOC.CPN ---
- Objective Allergies/Adverse Reactions: Allergies Allergy/AdvReac Type Severity Reaction Status Date / Time Zbgftju-Ims-Ybk Reductase Allergy Verified 05/29/17 20:22 Inhibitor Visit Medications: Current Medications Hydrocodone Bitart/Acetaminophen ([place] 5/325) 1 tab PO Q4H PRN PRN Reason: Moderate Pain (4-6) Last Admin: 08/10/19 03:02 Dose: 1 tab Hydrocodone Bitart/Acetaminophen ([place] 5/325) 2 tab PO Q4H PRN PRN Reason: Severe Pain (7-10) Last Admin: 08/07/19 15:26 Dose: 2 tab Al Hydroxide/Mg Hydroxide (Maalox) 30 ml PO Q4H PRN PRN Reason: Indigestion Amiodarone HCl (Cordarone) 400 mg PO BID [facility] Last Admin: 08/09/19 20:40 Dose: 400 mg Artificial Tears (Tears Naturale) 0 drop EA EYE PRN PRN PRN Reason: Dry Eyes Aspirin (Ecotrin) 325 mg PO DAILY [facility] Last Admin: 08/09/19 08:11 Dose: 325 mg Bisacodyl (Dulcolax) 10 mg PO Q12H PRN PRN Reason: Constipation Last Admin: 08/09/19 08:11 Dose: 10 mg Bisacodyl (Dulcolax) 10 mg [place] Q12H PRN PRN Reason: Constipation Dextrose/Water (Dextrose 50%) 25 gm SLOW IVP PRN PRN PRN Reason: Hypoglycemia Diphenhydramine HCl (Benadryl) 25 mg PO Q6H PRN PRN Reason: Itching & Insomnia or Keshav Johnson Docusate Sodium (Colace) 100 mg PO BID [facility] Last Admin: 08/09/19 20:40 Dose: 100 mg Fish Oil (Fish Oil) 1,000 mg PO BID [facility] Last Admin: 08/09/19 20:40 Dose: 1,000 mg Glimepiride (Amaryl) 4 mg PO 0730 [facility] Last Admin: 08/09/19 08:11 Dose: 4 mg Glucagon (Glucagon) 1 mg IM PRN PRN PRN Reason: Hypoglycemia Guaifenesin (Robitussin Sf) 200 mg PO Q4H PRN PRN Reason: Cough Guaifenesin/Dextromethorphan (Robitussin Dm) 15 ml PO Q4H PRN PRN Reason: Cough Dextrose/Water (D5w) 1,000 mls @ 0 mls/hr IV .Q0M PRN PRN Reason: Hypoglycemia Insulin Human Regular (Humulin R) 0 units SC .MODERATE SLIDING SC PRN PRN Reason: Moderate Correctional Scale Last Admin: 08/09/19 10:59 Dose: 4 unit Labetalol HCl (Normodyne) 20 mg SLOW IVP Q4H PRN PRN Reason: SBP > 180 and HR >/= 70 Loperamide HCl (Imodium) 2 mg PO PRN PRN PRN Reason: Diarrhea/Loose Stools Metformin HCl (Glucophage) 500 mg PO BID-[facility] Last Admin: 08/09/19 16:48 Dose: 500 mg Mineral Oil (Fleet Mineral Oil) 133 ml [place] DAILYPRN PRN PRN Reason: Constipation Last Admin: 08/08/19 22:14 Dose: 133 ml Multivitamins (Theragran) 1 tab PO DAILY [facility] Last Admin: 08/09/19 08:11 Dose: 1 tab Nitroglycerin (Nitrostat) 0.4 mg SL Q5MIN PRN PRN Reason: Chest Pain Ondansetron HCl (Zofran) 4 mg IVP Q6H PRN PRN Reason: Nausea/Vomiting Last Admin: 08/06/19 14:57 Dose: 4 mg Pioglitazone HCl (Actos) 30 mg PO DAILY [facility] Last Admin: 08/09/19 08:11 Dose: 30 mg Polyethylene Glycol (Miralax) 17 gm PO DAILY [facility] Last Admin: 08/09/19 08:11 Dose: 17 gm Senna/Docusate Sodium (Senokot S) 2 tab PO BID PRN PRN Reason: Constipation Sodium Biphosphate/Sodium Phosphate (Fleet Enema) 133 ml [place] ONE PRN PRN Reason: Constipation Stop: 08/12/19 09:59 Sodium Chloride (Flush - Normal Saline) 10 ml IVF Q12HR [facility] Last Admin: 08/09/19 20:40 Dose: 10 ml Sodium Chloride ([place] Nas[place] 0.65%) 0 ml EA NARE QIDPRN PRN PRN Reason: Nasal Congestion Throat Lozenges (Cepastat Lozenges) 1 arturo PO Q2H PRN PRN Reason: Sore Throat Zolpidem Tartrate (Ambien) 5 mg PO HSPRN PRN PRN Reason: Insomnia Vital Signs & Weight: Vital Signs Temp Pulse Resp BP Pulse Ox 08/10/19 03:29 94 L 08/10/19 03:07 98.0 F 75 17 117/59 L 94 L 08/09/19 23:07 74 16 135/65 94 L 08/09/19 19:30 98.1 F 76 18 113/60 96 Weight 226 lb 8 oz - Physical Exam General: alert & oriented x3 HEENT: normocephaly Neck: supple neck, no masses Cardiac: regular rate Lungs: normal exam Neuro: grossly intact Abdomen: soft Musculoskeletal: no pain - Labs Result Diagrams: 08/10/19 04:28 08/10/19 04:28 Troponin/CKMB Troponin I 7.008 ng/mL (< 0.028) H* 08/05/19 01:53 - Assessment/Plan Assessment/Plan: NQWMI CAD s/p CABG Previous stent Post op afib On BB, statin, ASA IP, PT Given brief episode of afib, no ACT
[2019-08-10] MEDS: Aspirin 325 mg Enteric Coated Tablet PO SCH (08:20)
[2019-08-10] MEDS: Fish Oil 1,000 MG CAP PO SCH ×2 (08:20→21:06)
[2019-08-10] MEDS: Multivit, Therapeutic 1 TAB PO SCH (08:21)
[2019-08-10] MEDS: Docusate 100 MG CAP PO SCH ×2 (08:21→21:06)
[2019-08-10] MEDS: Amiodarone 200 MG TAB PO SCH ×2 (08:21→21:06)
[2019-08-10] MEDS: Polyethylene Glycol 3350 17 GM Packet PO SCH (08:21)
[2019-08-10] MEDS: Pioglitazone HCl 15 MG TAB PO SCH (08:22)
[2019-08-10] MEDS: metFORMIN 500 MG TAB PO SCH ×2 (08:22→16:14)
[2019-08-10] MEDS: Glimepiride 4 MG TAB PO SCH (08:22)
[2019-08-10] MEDS ORDERED: Furosemide 20 MG/2 ML VIAL SLOW IVP SCH (10:00)
[2019-08-10] MEDS: Metoprolol Tartrate 25 MG TAB PO SCH ×2 (10:08→21:06)
--- NOTE | 2019-08-10 10:33 | PDOC.HOSPP ---
- Subjective Encounter Date: 08/10/19 Encounter Time: 08:30 Subjective: pt has small BM last night, still his abdomen is bloated, no abdominal pain, no nausea or vomiting - Objective Vital Signs & Weight: Vital Signs (12 hours) Temp Pulse Resp BP BP Pulse Ox 08/10/19 08:08 97.5 F L 86 18 131/60 97 08/10/19 03:29 94 L 08/10/19 03:07 98.0 F 75 17 117/59 L 94 L 08/09/19 23:07 74 16 135/65 94 L Weight Weight 226 lb 8 oz Most Recent Monitor Data Heart Rate from ECG 92 NIBP 108/76 NIBP BP-Mean 86 Respiration from ECG 28 SpO2 97 I&O: 08/09/19 08/10/19 08/11/19 06:59 06:59 06:59 Intake Total 1500 1112 Output Total 200 Balance 1500 912 Result Diagrams: 08/10/19 04:28 08/10/19 04:28 Additional Labs: Accuchecks 08/10/19 08/09/19 08/09/19 06:04 20:34 16:38 POC Glucose 146 H 174 H 144 H 08/09/19 11:00 POC Glucose 245 H EKG Reviewed by me: Yes Hospitalist ROS - Review of Systems Constitutional: denies: fever, chills, sweats, weakness, malaise, other ENT: denies: ear pain, ear discharge, nose pain, nose discharge, nose congestion , mouth pain, mouth swelling, throat pain, throat swelling, other Respiratory: denies: cough, dry, shortness of breath, hemoptysis, SOB with excertion, pleuritic pain, sputum, wheezing, other Cardiovascular: denies: chest pain, palpitations, orthopnea, paroxysmal noc. dyspnea, edema, light headedness, other Gastrointestinal: reports: constipation. denies: nausea, vomiting, abdominal pain, diarrhea, melena, hematochezia, other Genitourinary: denies: dysuria, frequency, incontinence, hematuria, retention, other Musculoskeletal: denies: neck pain, shoulder pain, arm pain, back pain, hand pain, leg pain, foot pain, other Skin: denies: rash, lesions, betito, bruising, other - Medication Medications: Active Medications Generic Name Dose Route Start Last Admin Trade Name Freq PRN Reason Stop Dose Admin Hydrocodone Bitart/Acetaminophen 1 tab 08/06/19 13:16 08/10/19 03:02 [place] 5/325 PO 1 tab Q4H PRN Administration Moderate Pain (4-6) Hydrocodone Bitart/Acetaminophen 2 tab 08/06/19 13:16 08/07/19 15:26 [place] 5/325 PO 2 tab Q4H PRN Administration Severe Pain (7-10) Amiodarone HCl 400 mg 08/09/19 21:00 08/10/19 08:21 Cordarone PO 400 mg BID KATE Administration Aspirin 325 mg 08/08/19 09:00 08/10/19 08:20 Ecotrin PO 325 mg DAILY KATE Administration Bisacodyl 10 mg 08/07/19 13:52 08/09/19 08:11 Dulcolax PO 10 mg Q12H PRN Administration Constipation Docusate Sodium 100 mg 08/05/19 21:00 08/10/19 08:21 Colace PO 100 mg BID KATE Administration Fish Oil 1,000 mg 08/09/19 09:00 08/10/19 08:20 Fish Oil PO 1,000 mg BID KATE Administration Furosemide 20 mg 08/10/19 10:00 08/10/19 10:08 Lasix SLOW IVP 08/10/19 12:00 20 mg NOW KATE Administration Glimepiride 4 mg 08/09/19 07:30 08/10/19 08:22 Amaryl PO 4 mg 0730 KATE Administration Insulin Human Regular 0 units 08/07/19 13:52 08/09/19 10:59 Humulin R SC 4 unit .MODERATE SLIDING SC PRN Administration Moderate Correctional Scale Metformin HCl 500 mg 08/09/19 08:00 08/10/19 08:22 Glucophage PO 500 mg BID-WM KATE Administration Metoprolol Tartrate 25 mg 08/10/19 09:00 08/10/19 10:08 Lopressor PO 25 mg BID KATE Administration Mineral Oil 133 ml 08/07/19 13:52 08/08/19 22:14 Fleet Mineral Oil [place] 133 ml DAILYPRN PRN Administration Constipation Multivitamins 1 tab 08/09/19 09:00 08/10/19 08:21 Theragran PO 1 tab DAILY KATE Administration Ondansetron HCl 4 mg 08/06/19 13:16 08/06/19 14:57 Zofran IVP 4 mg Q6H PRN Administration Nausea/Vomiting Pioglitazone HCl 30 mg 08/09/19 09:00 08/10/19 08:22 Actos PO 30 mg DAILY KATE Administration Polyethylene Glycol 17 gm 08/09/19 09:00 08/10/19 08:21 Miralax PO 17 gm DAILY KATE Administration Sodium Chloride 10 ml 08/05/19 09:00 08/10/19 08:22 Flush - Normal Saline IVF 10 ml Q12HR KATE Administration - Exam General Appearance: NAD, awake alert Eye: PERRL, anicteric sclera ENT: normocephalic atraumatic, no oropharyngeal lesions Neck: supple, symmetric, no JVD, no thyromegaly Heart: RRR, no murmur, no gallops, no rubs Respiratory: CTAB, no wheezes, no rales Gastrointestinal: soft, normal bowel sounds, no palpable masses, no hepatomegaly , no splenomegaly Gastrointestinal - other findings: bloated, Extremities: no cyanosis, no clubbing, 2+ LE edema Skin: normal turgor Skin - other findings: blister at surgical site Neurological: cranial nerve grossly intact, no focal deficits Musculoskeletal: normal tone, normal strength Psychiatric: normal affect, normal behavior Hosp A/P (1) NSTEMI (non-ST elevated myocardial infarction) Code(s): I21.4 - NON-ST ELEVATION (NSTEMI) MYOCARDIAL INFARCTION Status: Acute (2) 3-vessel coronary artery disease Status: Acute (3) Diabetes type 2, controlled Code(s): E11.9 - TYPE 2 DIABETES MELLITUS WITHOUT COMPLICATIONS Status: Chronic (4) S/P CABG (coronary artery bypass graft) Code(s): Z95.1 - PRESENCE OF AORTOCORONARY BYPASS GRAFT Status: Acute (5) Constipation Code(s): K59.00 - CONSTIPATION, UNSPECIFIED Status: Acute - Plan old records reviewed/req, plan discussed w/ family 08/05/19- s/p cardiac cath today, found with 3 vessel cad, now CV surgery consulted, will get echo today, he will need CABG, he is not on statin due to his allergy, currently on medical management, will repeat labs tomorrow, medication reviewed as above, symptomatic treatment 08/06/19- today plan for CABG, after CABG continue post CABG protocol treatment as per CV surgery. 08/07/19- as per CV surgery continue to monitor in CCU tonight, overall stable and improving 08/03/19- pst CABG doing well, continue cardiac rehab, discussed with family, monitor on tele, medication reviewed as above, symptomatic treatment 08/04/19- will add miralax scheduled, try stool softener today and if no result , fleet enema again tonight, amiodaron drip as per cardiology, continue cardiac rehab, discussed with and daughter, medication reviewed as above, symptomatic treatment, will repeat labs tomorrow, add metformin 500 mg po bid, 08/10/19- will check xray abdomen to see burden of constipation, will give him dose of lasix as he has edema leg, his blister around suture site, may be dermatitis, less likley infection, will monitor, continue cardiac rehab, discussed with son, fleet enema , amiodaron taper on discharge
--- NOTE | 2019-08-10 10:43 | RAD ---
XR Abdomen 1 View/KUB CLINICAL INDICATION: Constipation FINDINGS: Lung bases are clear. No free air. Moderate retained fecal material is seen within colon. Multiple radiopaque seeds overlie the prostate. No acute osseous pathology. IMPRESSION: Moderate retained fecal material throughout the colon.
[2019-08-10] MEDS ORDERED: Fleet Enema 133 ML BOT PR SCH (10:45)
[2019-08-10] MEDS: Insulin Regular 300 UNITS/3 ML VIAL SC PRN (12:15)
--- NOTE | 2019-08-11 06:57 | PDOC.CPN ---
- Subjective Date: 08/11/19 Time: 13:22 Interval history: Doing well. Would like to go home - Objective Allergies/Adverse Reactions: Allergies Allergy/AdvReac Type Severity Reaction Status Date / Time Ccjezzf-Aww-Qdy Reductase Allergy Verified 05/29/17 20:22 Inhibitor Visit Medications: Current Medications Hydrocodone Bitart/Acetaminophen ([place] 5/325) 1 tab PO Q4H PRN PRN Reason: Moderate Pain (4-6) Last Admin: 08/10/19 03:02 Dose: 1 tab Hydrocodone Bitart/Acetaminophen ([place] 5/325) 2 tab PO Q4H PRN PRN Reason: Severe Pain (7-10) Last Admin: 08/07/19 15:26 Dose: 2 tab Al Hydroxide/Mg Hydroxide (Maalox) 30 ml PO Q4H PRN PRN Reason: Indigestion Amiodarone HCl (Cordarone) 400 mg PO BID [facility] Last Admin: 08/10/19 21:06 Dose: 400 mg Artificial Tears (Tears Naturale) 0 drop EA EYE PRN PRN PRN Reason: Dry Eyes Aspirin (Ecotrin) 325 mg PO DAILY [facility] Last Admin: 08/10/19 08:20 Dose: 325 mg Bisacodyl (Dulcolax) 10 mg PO Q12H PRN PRN Reason: Constipation Last Admin: 08/09/19 08:11 Dose: 10 mg Bisacodyl (Dulcolax) 10 mg OH Q12H PRN PRN Reason: Constipation Dextrose/Water (Dextrose 50%) 25 gm SLOW IVP PRN PRN PRN Reason: Hypoglycemia Diphenhydramine HCl (Benadryl) 25 mg PO Q6H PRN PRN Reason: Itching & Insomnia or Keshav Johnson Docusate Sodium (Colace) 100 mg PO BID [facility] Last Admin: 08/10/19 21:06 Dose: 100 mg Fish Oil (Fish Oil) 1,000 mg PO BID [facility] Last Admin: 08/10/19 21:06 Dose: 1,000 mg Glimepiride (Amaryl) 4 mg PO 729 [facility] Last Admin: 08/10/19 08:22 Dose: 4 mg Glucagon (Glucagon) 1 mg IM PRN PRN PRN Reason: Hypoglycemia Guaifenesin (Robitussin Sf) 200 mg PO Q4H PRN PRN Reason: Cough Guaifenesin/Dextromethorphan (Robitussin Dm) 15 ml PO Q4H PRN PRN Reason: Cough Dextrose/Water (D5w) 1,000 mls @ 0 mls/hr IV .Q0M PRN PRN Reason: Hypoglycemia Insulin Human Regular (Humulin R) 0 units SC .MODERATE SLIDING SC PRN PRN Reason: Moderate Correctional Scale Last Admin: 08/10/19 12:15 Dose: 2 unit Labetalol HCl (Normodyne) 20 mg SLOW IVP Q4H PRN PRN Reason: SBP > 180 and HR >/= 70 Loperamide HCl (Imodium) 2 mg PO PRN PRN PRN Reason: Diarrhea/Loose Stools Metformin HCl (Glucophage) 500 mg PO BID[facility] Last Admin: 08/10/19 16:14 Dose: 500 mg Metoprolol Tartrate (Lopressor) 25 mg PO BID [facility] Last Admin: 08/10/19 21:06 Dose: 25 mg Mineral Oil (Fleet Mineral Oil) 133 ml OH DAILYPRN PRN PRN Reason: Constipation Last Admin: 08/08/19 22:14 Dose: 133 ml Multivitamins (Theragran) 1 tab PO DAILY [facility] Last Admin: 08/10/19 08:21 Dose: 1 tab Nitroglycerin (Nitrostat) 0.4 mg SL Q5MIN PRN PRN Reason: Chest Pain Ondansetron HCl (Zofran) 4 mg IVP Q6H PRN PRN Reason: Nausea/Vomiting Last Admin: 08/06/19 14:57 Dose: 4 mg Pioglitazone HCl (Actos) 30 mg PO DAILY [facility] Last Admin: 08/10/19 08:22 Dose: 30 mg Polyethylene Glycol (Miralax) 17 gm PO DAILY [facility] Last Admin: 08/10/19 08:21 Dose: 17 gm Senna/Docusate Sodium (Senokot S) 2 tab PO BID PRN PRN Reason: Constipation Sodium Biphosphate/Sodium Phosphate (Fleet Enema) 133 ml OH ONE PRN PRN Reason: Constipation Stop: 08/12/19 09:59 Sodium Chloride (Flush - Normal Saline) 10 ml IVF Q12HR [facility] Last Admin: 08/10/19 21:07 Dose: 10 ml Sodium Chloride ([place] Nasal [place] 0.65%) 0 ml EA NARE QIDPRN PRN PRN Reason: Nasal Congestion Throat Lozenges (Cepastat Lozenges) 1 arturo PO Q2H PRN PRN Reason: Sore Throat Zolpidem Tartrate (Ambien) 5 mg PO HSPRN PRN PRN Reason: Insomnia Vital Signs & Weight: Vital Signs Temp Pulse Resp BP Pulse Ox 08/11/19 04:00 97.8 F 66 20 107/59 L 94 L 08/10/19 20:00 97.5 F L 68 18 117/58 L 96 Weight 225 lb 6.4 oz - Quality Measures CV meds: Beta Bartolo: Yes, LONNIE/ARB: Yes, Statin: No, ASA: Yes - Medication Contraindications No Statin reason: Medical contraindication (allergy) - Physical Exam General: alert & oriented x3 HEENT: normocephaly Neck: supple neck, no masses, no bruit Cardiac: no murmur, regular rate, regular rhythm Lungs: normal exam Neuro: grossly intact Abdomen: non-tender Skin: rash Musculoskeletal: no pain - Labs Result Diagrams: 08/10/19 04:28 08/10/19 04:28 Troponin/CKMB Troponin I 7.008 ng/mL (< 0.028) H* 08/05/19 01:53 - Assessment/Plan Assessment/Plan: NQWMI CAD s/p CABG Pt on BB No further titration given HR in the 60's IP and PT Hold amiodarone given one episode of afib Add low dose ACEI givern DM
[2019-08-11] MEDS: Pioglitazone HCl 15 MG TAB PO SCH (08:14)
[2019-08-11] MEDS: Metoprolol Tartrate 25 MG TAB PO SCH (08:15)
[2019-08-11] MEDS: Aspirin 325 mg Enteric Coated Tablet PO SCH (08:15)
[2019-08-11] MEDS: Docusate 100 MG CAP PO SCH (08:15)
[2019-08-11] MEDS: Fish Oil 1,000 MG CAP PO SCH (08:15)
[2019-08-11] MEDS: Polyethylene Glycol 3350 17 GM Packet PO SCH (08:15)
[2019-08-11] MEDS: metFORMIN 500 MG TAB PO SCH (08:15)
[2019-08-11] MEDS: Glimepiride 4 MG TAB PO SCH (08:16)
[2019-08-11] MEDS: Multivit, Therapeutic 1 TAB PO SCH (08:16)
[2019-08-11] MEDS ORDERED: Lisinopril 5 MG TAB PO SCH (09:00)
[2019-08-11] MEDS ORDERED: Lisinopril 2.5 MG TAB PO SCH (09:00)
--- NOTE | 2019-08-11 11:18 | DIS ---
DATE OF ADMISSION: 08/05/2019 DATE OF DISCHARGE: 08/11/2019 PRIMARY CARE PHYSICIAN: Levi Slater MD DISCHARGE DISPOSITION: Home. PRIMARY DISCHARGE DIAGNOSES: 1. Non-ST elevation myocardial infarction. 2. Status post coronary artery bypass grafting for three-vessel coronary artery disease. SECONDARY DISCHARGE DIAGNOSES: Hypertension, diabetes type 2, dyslipidemia, and obesity. PRIMARY PROCEDURE/OPERATION: Cardiac catheterization was performed by Dr. Palomino and found with three-vessel coronary artery disease. Dr. Vela did a coronary artery bypass grafting x5. RADIOLOGICAL INVESTIGATION: The patient had a chest x-ray and abdomen x-ray. SIGNIFICANT LABORATORY DATA: WBC 10.3, hemoglobin 10.2, and platelet 184. INR 1.3. Sodium 130, potassium 3.9, BUN 20, creatinine 0.83, and calcium 7.8. DISCHARGE MEDICATIONS: 1. Aspirin 325 mg p.o. at bedtime. 2. Amaryl 4 mg p.o. daily. 3. Metformin 500 mg p.o. b.i.d. 4. Multivitamin one tablet daily. 5. Fish oil one capsule b.i.d. 6. Actos 30 mg daily. 7. [place] 5 one tablet q.4 hourly p.r.n. 8. Lisinopril 2.5 mg p.o. daily. 9. Lopressor 25 mg p.o. b.i.d. CONTRAINDICATION: The patient is not on statin therapy because the patient is highly allergic to statin therapy and he cannot tolerate those medication. CODE STATUS: Full code. INPATIENT CONSULTANTS: Dr. Palomino was consulted for non-ST elevation AR, who did cardiac cath. Dr. Vela was consulted for CABG. TEST RESULTS PENDING ON DISCHARGE: None. ALLERGIES: STATINS. DISCHARGE PLAN: Posthospital, the patient will follow up with Dr. Jaya Slaetr on August 14, 2019, at 10:30 a.m. The patient will follow up with Dr. Palomino in two to three weeks. The patient has appointment with cardiovascular surgeon on September 01, 2019 at 2:30 p.m. HOSPITAL COURSE: A 74-year-old male with above-mentioned medical problem, who was admitted by Dr. Pinzon, please see his H and P for further details. The patient presented for chest pain and his history was typical for angina. He also had significantly elevated troponin and Cardiology was consulted. The patient was taken for cardiac catheterization and found with three-vessel CAD. Subsequently, cardiovascular surgeon was consulted for CABG and CABG x5 was done. Typically, after surgery the patient remained in ICU for couple of days and then, he was transferred to telemetry floor, where he continued with cardiac rehab. His hospital course was complicated by some atrial arrhythmia, which was treated with amiodarone drip and amiodarone p.o. while in hospital, but it was only momentarily and that is why that medication was discontinued on the day of discharge. The patient does not require any kind of other chronic anticoagulation given transient nature of atrial arrhythmia. The patient's hospital course was also complicated with constipation, that was treated with stool softener and enema. The patient is doing much better. He is a hemodynamically stable, tolerating p.o. well and ambulatory. PHYSICAL EXAMINATION: VITAL SIGNS: I have seen and examined the patient at bedside today. Currently; temperature 98.2, pulse 67, respiratory rate 18, saturation 96% on room air, and blood pressure 131/62. Weight 225 pounds. GENERAL: The patient is currently alert and oriented, in no acute distress. HEENT: Head, normocephalic and atraumatic. Eyes; pupils are round and reactive to light. Extraocular muscle intact. ENT, oropharynx within normal limits. Moist mucous membranes. No oral lesion. No pharyngeal erythema. No exudate. NECK: Supple. No thyromegaly. No carotid bruit. No jugular venous distention. LUNGS: Clear to auscultation without any rhonchi or rales. CARDIAC: S1 and S2. Regular without any murmur. No gallop. No rub. ABDOMEN: Soft and benign without any tenderness. EXTREMITIES: No edema. NEUROLOGIC: Nonfocal examination. Overall, the patient is medically stable for discharge today. All new medications sent to his Pharmacy. Job ID: [id number]
[2019-08-11 12:21] VITALS: BP 120/61; TEMP 98.3
--- NOTE | 2019-08-12 03:03 | DIS ---
DATE OF ADMISSION: 08/05/2019 DATE OF DISCHARGE: 08/11/2019 PRINCIPAL DIAGNOSIS: Coronary artery disease with non-ST elevation myocardial infarction. SECONDARY DIAGNOSES: Atrial fibrillation and diabetes mellitus. PROCEDURES PERFORMED: Cardiac catheterization 08/05/2019, coronary artery bypass grafting x5 with left internal mammary artery to the LAD, greater saphenous vein graft from aorta to the diagonal into the PDA and sequential reverse greater saphenous vein graft from the aorta to the second obtuse marginal to the third obtuse marginal 08/06/2019. HISTORY OF PRESENT ILLNESS AND HOSPITAL COURSE: The patient is a 74-year-old diabetic man, who had right coronary stenting in 2009 following a myocardial infarction. He has done well until this presentation when he began developing epigastric discomfort, chest pressure and full sensation in his jaws. His troponin was elevated and he had a right bundle branch block on his EKG and was transferred here. He underwent cardiac catheterization, which demonstrated three-vessel coronary disease including a proximal LAD lesion. He had preserved left ventricular systolic function and elevated LVEDP at 35. He underwent coronary artery bypass grafting, weaned off pump easily and was promptly extubated. He had slightly labile blood pressure during the night consistent with intravascular volume depletion that responded to volume administration. He was transferred out of the intensive care unit mid day on postoperative day 1. He had scant drainage from his mediastinal tubes and remained in sinus rhythm to that point, so his mediastinal tubes and pacer wires were removed prior to his transfer. He did have a brief period of atrial fibrillation in the very merchant miller hours of postoperative day 3. He converted back to sinus rhythm on IV amiodarone. Lopressor 25 mg b.i.d. was added as his blood pressure at that point would tolerate it. He remained in sinus rhythm off amiodarone and given his diabetes, low-dose lisinopril was added. He is now being discharged home on postoperative day 5 to resume his home diabetes regimen and aspirin. He is given a prescription for lisinopril 2.5 mg a day and Lopressor 25 mg b.i.d. given his allergy to statins that is being deferred. I will plan on seeing him in the office in roughly two weeks. Job ID: [id number]
== END 2019-08-11 15:30 | disposition home or self-care (01) | DRG 234 ==
LOC: ERS 21:56 → 2NO 08-05 01:08 → CCU 08-06 07:34 → 2NO 08-07 13:49
PROVIDERS: ADMIT Hospitalist; ATTEND Hospitalist
PROC: 4A023N7 Measurement of Cardiac Sampling and Pressure, Left Heart, Percutaneous Approach (ICD-10-PCS; 2019-08-05)
PROC: B2111ZZ Fluoroscopy of Multiple Coronary Arteries using Low Osmolar Contrast (ICD-10-PCS; 2019-08-05)
PROC: 02100Z9 Bypass Coronary Artery, One Artery from Left Internal Mammary, Open Approach (ICD-10-PCS; principal; 2019-08-06)
PROC: 021309W Bypass Coronary Artery, Four or More Arteries from Aorta with Autologous Venous Tissue, Open Approach (ICD-10-PCS; 2019-08-06)
PROC: 06BQ0ZZ Excision of Left Saphenous Vein, Open Approach (ICD-10-PCS; 2019-08-06)
PROC: 5A1221Z Performance of Cardiac Output, Continuous (ICD-10-PCS; 2019-08-06)
DX: I21.4 Non-ST elevation (NSTEMI) myocardial infarction (principal); I25.10 Atherosclerotic heart disease of native coronary artery without angina pectoris; I10 Essential (primary) hypertension; E78.5 Hyperlipidemia, unspecified; E66.9 Obesity, unspecified; K59.00 Constipation, unspecified; I48.91 Unspecified atrial fibrillation; E86.9 Volume depletion, unspecified; R60.0 Localized edema; Z88.8 Allergy status to other drugs, medicaments and biological substances; Z85.46 Personal history of malignant neoplasm of prostate; Z79.82 Long term (current) use of aspirin; Z79.899 Other long term (current) drug therapy; I25.2 Old myocardial infarction; Z89.022 Acquired absence of left finger(s); Z68.31 Body mass index [BMI] 31.0-31.9, adult; Z79.84 Long term (current) use of oral hypoglycemic drugs; Z95.5 Presence of coronary angioplasty implant and graft; E11.9 Type 2 diabetes mellitus without complications
CPT/HCPCS: 36415; 36416; 36430; 71045; 74018; 76942; 80048; 80076; 83036; 83735; 84443; 84484; 85025; 85610; 85730; 86850; 86900; 86901; 93005; 93010; 93458; 93798; 94760; 96372; 99152; C1769; J0282; J0690; J1100; J1642; J1644; J1650; J1815; J1885; J1940; J2001; J2150; J2250; J2405; J2440; J2720; J3010; J3370; J3475; J3480; J3490; J7050; J7070; P9045; Q9967; S0017; S0028

== ENCOUNTER 2019-08-20 14:38 | Outpatient (CLI) | payer MEDICARE ==
--- NOTE | 2019-08-20 16:46 | RAD ---
PA AND LATERAL CHEST: Date: 08/20/19 HISTORY: Dyspnea. COMPARISON: 08/07/19 exam. FINDINGS: Heart size is enlarged with postop sternotomy changes. There is increasing left pleural effusion with associated parenchymal lung change. Also some slight blunting to the right costophrenic angle. IMPRESSION: 1. Cardiomegaly with postop sternotomy. 2. Increasing left pleural effusion and parenchymal change. Small right effusion is also seen. POS: TPC
== END 2019-08-20 14:39 | disposition home or self-care (01) ==
LOC: RAD 14:38
PROVIDERS: ATTEND Thoracic Surgery (Cardiothoracic Vascular Surgery)
DX: I25.10 Atherosclerotic heart disease of native coronary artery without angina pectoris (principal); I21.4 Non-ST elevation (NSTEMI) myocardial infarction; I51.7 Cardiomegaly; J90 Pleural effusion, not elsewhere classified; Z98.890 Other specified postprocedural states
CPT/HCPCS: 71046

== ENCOUNTER 2019-08-27 10:41 | Observation (INO) | payer MEDICARE ==
[2019-08-27 13:47] VITALS: BMI 29.2
[2019-08-27] MEDS ORDERED: Senokot S 8.6-50 MG TAB PO PRN (18:39)
[2019-08-27] MEDS ORDERED: Dextrose 50% Abboject 50 ML SYRINGE SLOW IVP PRN (18:39)
[2019-08-27] MEDS ORDERED: Bisacodyl 10 MG SUPP PR PRN (18:39)
[2019-08-27] MEDS ORDERED: Acetaminophen 325 MG TAB PO PRN (18:39)
[2019-08-27] MEDS ORDERED: Dextrose 5% in Water 1,000 ML IV PRN (18:39)
[2019-08-27] MEDS ORDERED: HYDROcodone/Acetaminophen 5/325 mg Tablet PO PRN (18:39)
[2019-08-27] MEDS ORDERED: Guaifenesin DM 100-10/5 ML UDCUP PO PRN (18:39)
[2019-08-27] MEDS ORDERED: HumaLOG 300 UNITS/3 ML VIAL SC PRN (18:39)
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
[2019-08-27 19:39] LABS: #Basophils 0.1 thou/uL (0.0-0.2); #Eosinphils 0.4 thou/uL (0.0-0.7); #Lymphocytes 1.2 thou/uL (1.20-3.40); #Monocytes 0.9 thou/uL (0.11-0.59); #Neutrophils 5.4 thou/uL (1.40-6.50); %Basophils 0.8 % (0.0-1.0); %Eosinophils 5.3 % (0.0-10.0); %Lymphocytes 15.4 % (21.0-51.0); %Monocytes 10.8 % (0.0-10.0); %Neutrophils 67.7 % (42.0-75.0); Mean Corpuscular HGB CONC 34.3 g/dL (32.0-36.0); Mean Corpuscular Hemoglobin 31.7 pg (27.0-31.0); Mean Corpuscular Volume 92.3 fL (78.0-98.0); Mean Platelet Volume 6.2 fL (7.4-10.4); Platelet Count 408 thou/uL (130-400); RBC Distribution Width 12.6 % (11.5-14.5)
[2019-08-27 20:02] LABS: ALT (SGPT) 10 U/L (8-55); AST (SGOT) 11 U/L (5-34); Albumin 3.4 g/dL (3.4-4.8); Alkaline Phosphatase 59 U/L (40-110); Anion Gap 12 mmol/L (10-20); BUN (Urea Nitrogen) 18 mg/dL (8.4-25.7); Bilirubin, Total 1.1 mg/dL (0.2-1.2); Calc. Creatinine Clearance 83 mL/min (70-130); Carbon Dioxide 32 mmol/L (23-31); Chloride 89 mmol/L (98-107); Estimated GFR-MDRD 70; Globulin 3.4 g/dL (2.4-3.5); Glucose 180 mg/dL (83-110); Potassium 3.7 mmol/L (3.5-5.1); Protein, Total 6.8 g/dL (5.8-8.1); Sodium 129 mmol/L (136-145)
[2019-08-27] MEDS ORDERED: Famotidine 20 MG TAB PO SCH (21:00)
[2019-08-27] MEDS: Fish Oil 1,000 MG CAP PO SCH (21:33)
[2019-08-27] MEDS: Ferrous Sulfate 325 MG TAB PO SCH (21:33)
[2019-08-27] MEDS: Metoprolol Tartrate 25 MG TAB PO SCH (21:33)
[2019-08-28 05:29] LABS: #Basophils 0.1 thou/uL (0.0-0.2); #Eosinphils 0.6 thou/uL (0.0-0.7); #Lymphocytes 1.5 thou/uL (1.20-3.40); #Monocytes 0.9 thou/uL (0.11-0.59); %Basophils 0.9 % (0.0-1.0); %Eosinophils 7.7 % (0.0-10.0); %Lymphocytes 18.5 % (21.0-51.0); %Monocytes 11.1 % (0.0-10.0); %Neutrophils 61.9 % (42.0-75.0); Hemoglobin 11.8 g/dL (14.0-18.0); Mean Corpuscular HGB CONC 34.5 g/dL (32.0-36.0); Mean Corpuscular Hemoglobin 31.7 pg (27.0-31.0); Mean Platelet Volume 6.7 fL (7.4-10.4); Platelet Count 409 thou/uL (130-400); RBC Distribution Width 12.6 % (11.5-14.5); Red Blood Cell (RBC) Count 3.72 mill/uL (4.70-6.10); White Blood Cell (WBC) Count 8.1 thou/uL (4.8-10.8)
[2019-08-28 05:46] LABS: Bacteria/HPF None Seen HPF (None Seen); Bilirubin Negative (Negative); Blood, Urine Negative (Negative); Clarity Clear (Clear); Glucose, Urine (Dipstick) Normal (Negative); Leukocyte Negative Leu/uL (Negative); Nitrite Negative (Negative); Protein, Urine (Dipstick) Negative (Neg-Trace); RBC/HPF 0-3 HPF (0-3); Squamous Epithelial 0-3 HPF (0-3); WBC/HPF 0-3 HPF (0-3)
[2019-08-28 05:46] LABS: Anion Gap 10 mmol/L (10-20); BUN (Urea Nitrogen) 16 mg/dL (8.4-25.7); Calc. Creatinine Clearance 99 mL/min (70-130); Calcium 8.9 mg/dL (7.8-10.44); Carbon Dioxide 31 mmol/L (23-31); Chloride 90 mmol/L (98-107); Estimated GFR-MDRD 86; Glucose 109 mg/dL (83-110); Potassium 3.2 mmol/L (3.5-5.1); Sodium 128 mmol/L (136-145)
[2019-08-28] MEDS ORDERED: Furosemide 40 MG/4 ML VIAL SLOW IVP SCH (06:00)
[2019-08-28] MEDS ORDERED: Glimepiride 4 MG TAB PO SCH (07:30)
[2019-08-28] MEDS ORDERED: metFORMIN 500 MG TAB PO SCH (08:00)
--- NOTE | 2019-08-28 08:27 | RAD ---
Portable frontal chest radiograph: 08/28/2019 COMPARISON: 08/27/2019 HISTORY: Left pleural effusion FINDINGS: Stable moderate left pleural effusion. Probable small right pleural effusion. No pneumothor ax is evident. Midline sternotomy wires are present. There is stable prominence of the cardiac silhouette. IMPRESSION: Bilateral pleural effusions, left greater than right.
[2019-08-28] MEDS ORDERED: Heparin 1,000 UNITS/ML VIAL ONE (08:37)
[2019-08-28] MEDS: Ferrous Sulfate 325 MG TAB PO SCH (08:45)
[2019-08-28] MEDS: Fish Oil 1,000 MG CAP PO SCH (08:45)
[2019-08-28] MEDS: Metoprolol Tartrate 25 MG TAB PO SCH (08:47)
[2019-08-28] MEDS ORDERED: Enoxaparin Sodium 40 MG/0.4 ML SYRINGE SC SCH (09:00)
[2019-08-28] MEDS ORDERED: Aspirin 325 mg Enteric Coated Tablet PO SCH (09:00)
[2019-08-28] MEDS ORDERED: Multivit, Therapeutic 1 TAB PO SCH (09:00)
[2019-08-28] MEDS ORDERED: Lisinopril 2.5 MG TAB PO SCH (09:00)
[2019-08-28] MEDS ORDERED: PLECANATIDE PO SCH (09:00)
[2019-08-28] MEDS ORDERED: Pioglitazone HCl 15 MG TAB PO SCH (09:00)
--- NOTE | 2019-08-28 11:05 | RAD ---
Frontal radiograph chest: 08/28/2019 11:01 AM COMPARISON: 08/28/2019 8:00 AM HISTORY: Evaluate chest following left-sided thoracentesis FINDINGS: The patient is status post left thoracentesis with marked interval decrease in the size of the left pleural effusion. Small bilateral pleural effusions are noted. Midline sternotomy wires are present. No pneumothorax is evident on either side. There is hazy nonspecific left basilar pulmon lorin parenchymal opacity. IMPRESSION: Status post left-sided thoracentesis. No pneumothorax. Small residual bilateral pleural e ffusions.
[2019-08-28 11:30] LABS: Fluid, Triglycerides 63 mg/dL (Not Available); Pleural Fluid, Amylase Less than 30 U/L (Not Available); Pleural Fluid, Glucose 124 mg/dL; Pleural Fluid, LDH 204 U/L (Not Available); Pleural Fluid, Protein 4.3 g/dL
[2019-08-28 12:10] LABS: RBC Count-Automated (BF) 29616 /cumm; WBC/Nucleated-Auto (BF) 397 uL
[2019-08-28] MEDS ORDERED: diphenhydrAMINE 12.5 MG/5 ML UDCUP PO SCH (12:15)
--- NOTE | 2019-08-28 12:17 | CON ---
DATE OF CONSULTATION: HISTORY OF PRESENT ILLNESS: Kevyn Beckwith is a 74-year-old gentleman, who was admitted yesterday after presenting with shortness of breath. X-ray shows large left pleural effusion. He underwent recently coronary artery bypass graft surgery. He is denying any chest pain, chills, or sweats. PAST MEDICAL HISTORY: Coronary artery disease, status post CABG; history of diabetes; previous stent; atrial fibrillation; hypertension; diabetes. PAST SURGICAL HISTORY: Included previous surgery for hand, prostate stents, bypass. No alcohol or tobacco abuse. HOME MEDICATIONS: 1. Trulance 3 mg tablets. 2. Iron. 3. Metolazone 10 mg. 4. Potassium. 5. Lasix 40. 6. Metformin 500. 7. Metoprolol 25 b.i.d. 8. Lisinopril 2.5. 9. Hydrocodone. 10. Amaryl 5. 11. Pioglitazone 30 mg a day. ALLERGIES: PLAVIX AND STATINS. SOCIAL HISTORY: Unremarkable. REVIEW OF SYSTEMS: Ten-point negative. PHYSICAL EXAMINATION: VITAL SIGNS: Blood pressure 110/56, pulse 82, temperature 98, respirations 18, saturation 96% on room air. CHEST: Decreased breath sounds. No wheezing. There is dullness. Decreased breath sounds in left lower one third. CARDIAC: Normal S1 and S2. ABDOMEN: Negative masses. LABORATORY DATA: H and H are stable 11 and 34, platelet count is normal at 409. Lytes are normal. Sodium 128. IMPRESSION: 1. Left pleural effusion post coronary artery bypass graft. 2. Diabetes. 3. Hypertension. PLAN: Thoracentesis performed to relieve his dyspnea. Further recommendation as above. Otherwise, continue cardiac care. This is a consultation note, 70 minutes, 50% direct patient care exclusive of the thoracentesis to be performed. Job ID: [id number]
[2019-08-28 12:19] LABS: BF Color Red; Body Fluid Source Thoracentesis Fluid; Clarity Cloudy/Turbid (Clear); Tube # EDTA
--- NOTE | 2019-08-28 12:32 | PDOC.HOSPP ---
- Subjective Encounter Date: 08/28/19 Encounter Time: 10:15 Subjective: no sob or weakness is sitting in chair, at bedside - Objective Vital Signs & Weight: Vital Signs (12 hours) Temp Pulse Resp BP BP BP Pulse Ox 08/28/19 11:10 97.8 F 80 18 89/56 L 92 L 08/28/19 08:46 82 111/56 L 08/28/19 08:00 98.2 F 82 16 111/56 L 97 08/28/19 04:00 98.2 F 75 19 109/58 L 93 L Weight Weight 210 lb I&O: 08/27/19 08/28/19 08/29/19 06:59 06:59 06:59 Intake Total 360 Output Total 800 Balance -440 Result Diagrams: 08/28/19 04:41 08/28/19 04:41 Additional Labs: Accuchecks 08/28/19 08/28/19 08/27/19 11:07 05:39 20:23 POC Glucose 140 H 126 H 216 H 08/27/19 16:51 POC Glucose 99 Hospitalist ROS - Medication Medications: Active Medications Generic Name Dose Route Start Last Admin Trade Name Aldairq PRN Reason Stop Dose Admin Aspirin 325 mg 08/28/19 09:00 08/28/19 08:46 Ecotrin PO 325 mg DAILY KATE Administration Enoxaparin Sodium 40 mg 08/28/19 09:00 08/28/19 08:47 Lovenox SC 40 mg 0900 KATE Administration Ferrous Sulfate 325 mg 08/27/19 21:00 08/28/19 08:45 Feosol PO 325 mg BID KATE Administration Fish Oil 1,000 mg 08/27/19 21:00 08/28/19 08:45 Fish Oil PO 1,000 mg BID KATE Administration Furosemide 40 mg 08/28/19 06:00 08/28/19 05:11 Lasix SLOW IVP 40 mg 0600,1400 KATE Administration Glimepiride 4 mg 08/28/19 07:30 08/28/19 08:45 Amaryl PO 4 mg DAILY-AC KATE Administration Lisinopril 2.5 mg 08/28/19 09:00 08/28/19 08:46 Zestril PO 2.5 mg DAILY KATE Administration Metformin HCl 500 mg 08/28/19 08:00 08/28/19 08:47 Glucophage PO 500 mg QAM-WM KATE Administration Metoprolol Tartrate 25 mg 08/27/19 21:00 08/28/19 08:47 Lopressor PO 25 mg BID KATE Administration Multivitamins 1 tab 08/28/19 09:00 08/28/19 08:46 Theragran PO 1 tab DAILY KATE Administration Pioglitazone HCl 30 mg 08/28/19 09:00 08/28/19 08:46 Actos PO 30 mg DAILY KATE Administration Potassium Chloride 20 meq 08/28/19 08:00 08/28/19 08:45 Klor-Con PO 20 meq BID-WM KATE Administration Sodium Chloride 10 ml 08/28/19 09:00 08/28/19 08:51 Flush - Normal Saline IVF 10 ml Q12HR KATE Administration - Exam General Appearance: NAD, awake alert Eye: PERRL, anicteric sclera ENT: no oropharyngeal lesions, moist mucosa Neck: supple, no JVD Heart: RRR, no murmur, no gallops Respiratory: no wheezes, no rales Respiratory - other findings: decreased air entry left infrascapular area Gastrointestinal: soft, non-tender, non-distended, normal bowel sounds Extremities: no cyanosis, no edema Neurological: cranial nerve grossly intact, no focal deficits Psychiatric: normal affect, A&O x 3 Hosp A/P (1) Pleural effusion, left Code(s): J90 - PLEURAL EFFUSION, NOT ELSEWHERE CLASSIFIED Status: Acute (2) S/P CABG (coronary artery bypass graft) Code(s): Z95.1 - PRESENCE OF AORTOCORONARY BYPASS GRAFT Status: Acute (3) HTN (hypertension) Code(s): I10 - ESSENTIAL (PRIMARY) HYPERTENSION Status: Chronic Qualifiers: Hypertension type: essential hypertension Qualified Code(s): I10 - Essential (primary) hypertension (4) Dyslipidemia Code(s): E78.5 - HYPERLIPIDEMIA, UNSPECIFIED Status: Chronic (5) Diabetes type 2, controlled Code(s): E11.9 - TYPE 2 DIABETES MELLITUS WITHOUT COMPLICATIONS Status: Chronic Qualifiers: Diabetes mellitus penitentiary insulin use: without ferry terminal supervisor use - Plan for thoracentesis today by d/w likely home if cleared by CTS/Pulm later today hemostable continue asp, lopressor, glimepride, metformin, oral lasix
[2019-08-28 12:42] LABS: BF Segmented Neutrophils 6 %; Cell Count Non Hematic 50 %; Eosinophils 24 %; Lymphocytes 16 %
--- NOTE | 2019-08-28 12:57 | OP ---
DATE OF PROCEDURE: 08/28/2019 PROCEDURE PERFORMED: Thoracentesis. INDICATIONS: Pleural effusion. DESCRIPTION OF PROCEDURE: After informed consent, the left posterior thorax was cleaned with chlorhexidine. 1% lidocaine was infiltrated into the left ninth intercostal space in the midscapular line and the pleural cavity was entered in and sanguinous fluid was removed 20 mL. Thereafter, using an 8-Czech catheter, additional 2000 mL or 2 L of fluid was removed without any difficulty. The effusion was sent for appropriate studies, cytology and culture. The patient tolerated the procedure well, though he did have pain. Postprocedure x-ray being ordered. If it is stable, he can be discharged home any time. Job ID: [id number]
[2019-08-28 15:41] VITALS: BP 93/50; TEMP 98.7
[2019-08-29] MEDS ORDERED: Furosemide 40 MG TAB PO SCH (09:00)
--- NOTE | 2019-08-31 09:48 | DIS ---
DATE OF ADMISSION: 08/27/2019 DATE OF DISCHARGE: 08/28/2019 DISCHARGE DISPOSITION: Home. PRIMARY DISCHARGE DIAGNOSIS: Left pleural effusion with prior coronary artery bypass grafting, status post thoracentesis with removal of 2 L serosanguineous fluid. SECONDARY DISCHARGE DIAGNOSES: 1. 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 2. Hypertension. 3. Dyslipidemia. 4. Diabetes mellitus, type 2. PROCEDURES DONE DURING HOSPITALIZATION: The patient has had thoracentesis done by Dr. Van on 08/28/2019, with removal of 2 L of serosanguineous pleural fluid from the left side. Histopathology of the pleural fluid does not reveal any malignant cells. No acid-fast bacilli from the pleural fluid. Gram stain was negative. No growth was seen in 3 days on the pleural fluid. H and H 12 and 34, platelet count 409, white count of 8, MCV 92. BUN 16, creatinine 0.8. DISCHARGE MEDICATIONS: 1. Lasix 40 mg p.o. daily. 2. Ferrous sulfate 325 mg p.o. twice daily. 3. Amaryl 4 mg p.o. daily. 4. Glucophage 500 mg p.o. daily. 5. Multivitamin 1 tablet once daily. 6. Fish oil 1200 mg p.o. twice daily. 7. Pioglitazone 30 mg p.o. daily. 8. Trulance 3 mg p.o. daily. 9. Aspirin 325 mg p.o. daily. 10. [place] p.r.n. for pain. 11. Lisinopril 2.5 mg p.o. daily. 12. Lopressor 25 mg twice daily. 13. K-Dur 20 mEq p.o. daily. ALLERGIES: 1. PLAVIX. 2. STATINS. DISCHARGE PLAN: The patient to follow up with primary care physician, Dr. Levi Slater in [place] in 1 week. He needs to follow up with Dr. Vlea on 09/01/2019, at 02:[address] Van on 09/01/2019. BRIEF COURSE DURING HOSPITALIZATION: The patient initially came in with complaints of shortness of breath and orthopnea. He has had CABG done on 08/06/2019, for 5-vessel disease by Dr. Vela. Initial x-rays showed left pleural effusion. He was recovering well postoperatively and was ambulating 100 feet per patient. In view of the patient being symptomatic, the patient has had consultation with Dr. Van for Pulmonology. 2 L of pleural fluid was removed, which was serosanguineous from the left pleural cavity. Postprocedure, the patient has remained hemodynamically stable and has complete relief from the shortness of breath. He has been cleared for discharge by Dr. Van. Please see a [id number] documentation for the day of discharge on [facility]. Job ID: [id number] [facility]
== END 2019-08-28 17:33 | disposition home or self-care (01) ==
LOC: INTOOBSV 12:11 → 2NO 12:11
PROVIDERS: ADMIT Internal Medicine; ATTEND Internal Medicine
PROC: 0W9B3ZZ Drainage of Left Pleural Cavity, Percutaneous Approach (ICD-10-PCS; principal; 2019-08-28)
DX: J90 Pleural effusion, not elsewhere classified (principal); I25.10 Atherosclerotic heart disease of native coronary artery without angina pectoris; I10 Essential (primary) hypertension; E78.5 Hyperlipidemia, unspecified; E11.9 Type 2 diabetes mellitus without complications; I48.0 Paroxysmal atrial fibrillation; Z79.82 Long term (current) use of aspirin; Z79.84 Long term (current) use of oral hypoglycemic drugs; Z79.899 Other long term (current) drug therapy; Z88.8 Allergy status to other drugs, medicaments and biological substances; Z95.1 Presence of aortocoronary bypass graft; Z95.5 Presence of coronary angioplasty implant and graft
CPT/HCPCS: 32554; 71045; 80048; 80053; 81001; 82150; 82945; 82962 ×2; 83615; 84157; 84478; 85025 ×2; 87070; 87116; 87205; 87206 ×2; 88112; 88305; 89051; 97139 ×2; G0378; 36415; 36416; 85060; J1644; J1650; J1940; Q0163

== ENCOUNTER 2019-09-02 14:19 | Outpatient (CLI) | payer MEDICARE ==
--- NOTE | 2019-09-02 14:41 | RAD ---
XR Chest Pa Lat @ [facility] HISTORY: Dyspnea COMPARISON: 08/28/2019 FINDINGS: Changes of median sternotomy are again seen. The heart size is stable. There are small bila teral pleural effusions, left larger than right. No pneumothoraces or lobar consolidation are seen. There is no evidence of jose david pulmonary edema. IMPRESSION: Small bilateral pleural effusions.
== END 2019-09-02 14:20 | disposition home or self-care (01) ==
LOC: RAD 14:19
PROVIDERS: ATTEND Internal Medicine Pulmonary Disease
DX: R06.00 Dyspnea, unspecified (principal); J90 Pleural effusion, not elsewhere classified
CPT/HCPCS: 71046

== ENCOUNTER 2024-04-30 13:02 | Emergency (ER) | payer MEDICARE ==
[2024-04-30 15:07] LABS: #Basophils 0.05 10x3/uL (0.0-0.2); %Basophils 0.3 % (0.0-1.0); %Eosinophils 5.1 % (0.0-10.0); %Lymphocytes 4.9 % (21.0-51.0); %Neutrophils 82.3 % (42.0-75.0); Hematocrit 37.2 % (42.0-52.0); Hemoglobin 12.3 g/dL (14.0-18.0); Mean Corpuscular HGB CONC 33.1 g/dL (32.0-36.0); Mean Corpuscular Hemoglobin 29.6 pg (27.0-31.0); Mean Corpuscular Volume 89.6 fL (78.0-98.0); Mean Platelet Volume 9.7 fL (7.4-10.4); Platelet Count 431 10x3/uL (130-400); RBC Distribution Width 14.3 % (11.5-14.5); Red Blood Cell (RBC) Count 4.15 mill/uL (4.70-6.10)
[2024-04-30 15:28] LABS: ALT (SGPT) 49 U/L (8-55); AST (SGOT) 25 U/L (5-34); Albumin 1.8 g/dL (3.4-4.8); Alkaline Phosphatase 80 U/L (40-110); Anion Gap 17 mmol/L (10-20); BUN (Urea Nitrogen) 31 mg/dL (8.4-25.7); Bilirubin, Total 0.5 mg/dL (0.2-1.2); Calc. Creatinine Clearance 0 mL/min (70-130); Calcium 8.1 mg/dL (7.8-10.44); Carbon Dioxide 20 mmol/L (23-31); Chloride 99 mmol/L (98-107); Estimated GFR 63; Globulin 3.5 g/dL (2.4-3.5); Glucose 331 mg/dL (83-110); Potassium 4.9 mmol/L (3.5-5.1); Protein, Total 5.3 g/dL (5.8-8.1); Sodium 131 mmol/L (136-145)
[2024-04-30 15:33] LABS: Troponin I 0.011 ng/mL (< 0.028)
== END 2024-04-30 16:55 | disposition home or self-care (01) ==
LOC: ERS 13:02
DX: K59.00 Constipation, unspecified (principal); E11.9 Type 2 diabetes mellitus without complications; I10 Essential (primary) hypertension; Z79.82 Long term (current) use of aspirin; Z79.899 Other long term (current) drug therapy
CPT/HCPCS: 36415; 71045; 71260; 74177; 80053; 83605; 83880; 84484; 85025; 93005